=== PATIENT | male | born 1965 | race Caucasian/White ===

== ENCOUNTER 2023-10-08 17:39 | Inpatient (IN) ==
--- NOTE | 2023-10-08 18:45 | EKG ---
Test Reason : surgery Blood Pressure : */* mmHG Vent. Rate : 63 BPM Atrial Rate : * BPM P-R Int : * ms QRS Dur : 90 ms QT Int : 480 ms P-R-T Axes : * -13 57 degrees QTc Int : 491 ms Atrial fibrillation Low voltage QRS Prolonged QT Abnormal ECG No previous ECGs available Confirmed by Alfa Covarrubias MD ([id number]) on 10/09/2023 10:17:48 AM Referred By: Confirmed By: Alfa Covarrubias MD
[2023-10-08] MEDS: NS 1,000 ML IV 1,000 ML IV SCH (19:21)
[2023-10-08 19:28] LABS: BASOPHILS % (AUTO) 0.1 % (0.2-1.0); EOSINOPHILS # (AUTO) 0.1 x10^3/uL (0.0-0.2); EOSINOPHILS % (AUTO) 0.3 % (0.9-2.9); HEMATOCRIT 29.5 % (42.0-54.0); HEMOGLOBIN 9.6 g/dL (13.5-18.0); LYMPHOCYTES # (AUTO) 0.9 X10^3/uL (1.3-2.9); LYMPHOCYTES % (AUTO) 3.7 % (21.0-51.0); MEAN CORPUSCULAR HEMOGLOBIN 26.5 pg (27.0-34.0); MEAN CORPUSCULAR HGB CONC 32.7 g/dL (33.0-35.0); MEAN PLATELET VOLUME 7.3 fL (7.4-11.0); MONOCYTES # (AUTO) 0.8 x10^3/uL (0.3-0.8); MONOCYTES % (AUTO) 3.3 % (0.0-13.0); NEUTROPHILS # (AUTO) 21.8 x10^3/uL (2.2-4.8); NEUTROPHILS % (AUTO) 92.6 % (42.0-75.0); PLATELET COUNT 467 X10^3/uL (150.0-450.0); RED BLOOD COUNT 3.64 X10^6/uL (4.7-6.0); RED CELL DISTRIBUTION WIDTH 18.4 % (11.6-16.5); WHITE BLOOD COUNT 23.6 X10^3/uL (3.6-10.0)
[2023-10-08 19:40] LABS: ALBUMIN 1.7 g/dL (3.4-5.0); CALCIUM 8.7 mg/dL (8.5-10.1); COR CA(FOR HYPOALB) 10.5 mg/dL (8.5-10.1); CREATININE 1.63 mg/dL (0.70-1.30); POTASSIUM 4.4 mmol/L (3.5-5.1); TOTAL PROTEIN 8.8 g/dL (6.4-8.2)
[2023-10-08 19:50] LABS: HEMOGLOBIN A1C 8.9 %
[2023-10-08] MEDS ORDERED: NovoLIN R (or HumuLIN R) SC PRN (20:08)
[2023-10-08 20:27] LABS: PLATELET MORPHOLOGY COMMENT NORMAL (NORMAL)
[2023-10-08 20:28] LABS: ANISOCYTOSIS SLIGHT; HYPOCHROMASIA SLIGHT
[2023-10-08] MEDS: MERREM VIAL 1 G in NS 100 ML IV 100 ML IV SCH (20:29)
[2023-10-08] MEDS: LOVENOX INJ 80 MG SYR SC SCH (20:30)
[2023-10-08] MEDS ORDERED: GLUCOPHAGE XR 24-HR PO SCH (21:00)
[2023-10-08] MEDS: VANCOMYCIN IV *PREMIX 1.5 G/300 ML BAG 1.5 G/300 ML PIGGYBACK IV SCH (21:37)
--- NOTE | 2023-10-08 22:30 | CT ---
EXAM:CTA AORTA WITH RUNOFFHISTORY:critical ischemia right foot, pt stated he has ulcers to right foot and that his big toe fell off;COMPARISON:None available.TECHNIQUE:Multiple axial images of the abdomen and pelvis were obtained from the mesenteric vasculature to the plantar surface of the feet both prior to and after the administration of IV contrast. 3D reconstructions were performed utilizing radial maximum intensity projection imaging. Dose reduction techniques including Automated Exposure Control (AEC) and adjustment of mA and kV were utilized.FINDINGS:The visualized portions of the solid organs are unremarkable in their CT appearance. Cholelithiasis. No significant mesenteric lymphadenopathy or stranding can be observed. No free fluid or free air is seen within the abdomen. No bowel wall thickening or bowel dilatation is present . The colon is unremarkable. Specifically, there is no diverticulosis noted within the sigmoid colon. The urinary bladder is grossly unremarkable. The bony structures are grossly intact.There is mild diffuse calcification of the arterial castellanos.Infrarenal abdominal aorta: PatentCommon iliac arteries: PatentExternal iliac arteries: PatentCommon femoral arteries: PatentSuperficial femoral arteries: PatentPopliteal arteries: PatentTibial vasculature: Distal tibial vasculature diminished at the right ankle relative to the left. Three-vessel runoff at the level of the left ankle with two-vessel runoff at the level of the right ankle.IMPRESSION:Mild diffuse calcification of the arterial castellanos without severe stenosis or occlusion.Distal tibial vasculature is diminished at the right ankle relative to the left.Cholelithiasis.THIS IS AN ELECTRONICALLY VERIFIED FINAL REPORT10/08/2023 10:27 PM - Electronically signed by Buzz Villa MD
[2023-10-08] MEDS: OMNIPAQUE 350 mg/mL 100 mL BTL 100 ML ONE (22:38)
[2023-10-08] MEDS: OMNIPAQUE 350 mg/mL 50 mL BTL 50 ML ONE (22:38)
[2023-10-08] MEDS: NS 100 ML IV 0 ML ONE (22:39)
[2023-10-09 05:33] LABS: BASOPHILS # (AUTO) 0.1 X10^3/uL (0.0-0.1); BASOPHILS % (AUTO) 0.5 % (0.2-1.0); EOSINOPHILS # (AUTO) 0.2 x10^3/uL (0.0-0.2); EOSINOPHILS % (AUTO) 1.3 % (0.9-2.9); HEMATOCRIT 26.9 % (42.0-54.0); HEMOGLOBIN 8.8 g/dL (13.5-18.0); LYMPHOCYTES # (AUTO) 1.4 X10^3/uL (1.3-2.9); LYMPHOCYTES % (AUTO) 7.8 % (21.0-51.0); MEAN CORPUSCULAR HEMOGLOBIN 26.4 pg (27.0-34.0); MEAN CORPUSCULAR HGB CONC 32.6 g/dL (33.0-35.0); MEAN CORPUSCULAR VOLUME 80.9 fL (80.0-100.0); MEAN PLATELET VOLUME 7.6 fL (7.4-11.0); MONOCYTES % (AUTO) 5.4 % (0.0-13.0); NEUTROPHILS # (AUTO) 15.7 x10^3/uL (2.2-4.8); PLATELET COUNT 393 X10^3/uL (150.0-450.0); RED BLOOD COUNT 3.32 X10^6/uL (4.7-6.0); RED CELL DISTRIBUTION WIDTH 18.6 % (11.6-16.5); WHITE BLOOD COUNT 18.4 X10^3/uL (3.6-10.0)
[2023-10-09 05:56] LABS: ALANINE AMINOTRANSFERASE 23 Units/L (12-78); ALBUMIN 1.4 g/dL (3.4-5.0); ALKALINE PHOSPHATASE 149 Units/L (46-116); ASPARTATE AMINO TRANSFERASE 22 Units/L (15-37); BLOOD UREA NITROGEN 30 mg/dL (7-18); CALCIUM 8.3 mg/dL (8.5-10.1); CHLORIDE 96 mmol/L (98-107); COR CA(FOR HYPOALB) 10.4 mg/dL (8.5-10.1); CREATININE 1.52 mg/dL (0.70-1.30); GLUCOSE 104 mg/dL (65-99); POTASSIUM 4.5 mmol/L (3.5-5.1); SODIUM 129 mmol/L (136-145); TOTAL PROTEIN 7.4 g/dL (6.4-8.2); eGFR NON BLACK RACES 50 (>60)
--- NOTE | 2023-10-09 07:25 | RAD ---
EXAMINATION: CHEST, 1 VIEW HISTORY: surgery; . COMPARISON STUDY: None. TECHNIQUE: A single view of the chest was obtained. FINDINGS: Poor inspiration. Heart size is enlarged. No acute infiltrates. There is no pneumothorax. Hilar a nd mediastinal structures and bony structures are unremarkable. EKG leads overlie the film. Slightly lordotic film.. IMPRESSION: No acute process in the chest. THIS IS AN ELECTRONICALLY VERIFIED FINAL REPORT 10/09/2023 7:22 AM - Electronically signed by Bill Wang MD
--- NOTE | 2023-10-09 07:28 | RAD ---
EXAM: Right foot two views HISTORY: Soft tissue gas COMPARISON: None FINDINGS: There is diffuse soft tissue swelling throughout the forefoot with soft tissue gas suggestive of ga s gangrene. Patient appears to be status post amputation of the 1st ray at the level of the interpha langeal joint. There is abnormal periosteal reaction along the distal aspect of 2nd metatarsal shaft . There is disruption of the 2nd PIP joint and 3rd PIP joint. There is destructive change in the di stal 3rd metatarsal. Tarsal bones are intact and normally aligned. Lisfranc joint is intact. IMPRESSION: Soft tissue swelling and soft tissue gas suggestive of gas gangrene Findings suggestive of acute osteomyelitis involving the 2nd PIP joint, distal 2nd metatarsal and 3rd metatarsal THIS IS AN ELECTRONICALLY VERIFIED FINAL REPORT 10/09/2023 7:25 AM - Electronically signed by Ismael Mckee MD
--- NOTE | 2023-10-09 07:29 | RAD ---
EXAM: Right tibia and fibula two views HISTORY: Soft tissue gas COMPARISON: None FINDINGS: There is no evidence for fracture, lytic, or blastic lesion. No abnormal periosteal reaction or so ft tissue abnormality identified. IMPRESSION: No significant abnormality identified THIS IS AN ELECTRONICALLY VERIFIED FINAL REPORT 10/09/2023 7:26 AM - Electronically signed by Ismael Mckee MD
--- NOTE | 2023-10-09 07:42 | NOTE.SOAP ---
Soap Note Note for Day of Date of Exam: 10/09/23 Subjective Data Subjective Data: 58 year old male with severe infection to his right foot that he noticed over the weekend, never prior was sent to the hospital by Dr. Daniels. Patient is feeling fine otherwise but infection is quite significant. He has never seen a textile dyer before for diabetic foot care. Denies any constitutional symptoms Objective Data Objective Data: Ecchymosis noted along the 5th toe of the right foot and a full thickness necrotic wound on the instep of the right foot. Significantly malodorous. Erythema and edema diffusely along the right lower extremity. Unable to palpate pulses Assessment Assessment: Gas gangrene, right foot Plan Plan: Pateint was seen and evaluated bedside this am. Diagnosis and treatment were discussed with [facility] patient in detail. I explained that this is a limb threatening infection and he must get surgery this morning. He understands and wishes to proceed. XR and CTA were reviewed. Labs reviewed; patient on IV abx. Plan to take patient for a guillatine amputation with implantation of antibiotic cement and a wound vac. Patient is NPO since midnight
[2023-10-09] MEDS: FARXIGA PO SCH (08:36)
[2023-10-09] MEDS: PriLOSEC PO SCH (08:36)
[2023-10-09] MEDS: CHLORTHALIDONE PO SCH (08:37)
[2023-10-09] MEDS: ZESTRIL TAB 40 MG PO SCH (08:37)
[2023-10-09] MEDS: PHARMACY CONSULT - VANCOMYCIN XX SCH (08:38)
[2023-10-09] MEDS: VANCOMYCIN IV *PREMIX 1 G/200 ML BAG 1 G/200 ML PIGGYBACK IV ONE (08:38)
[2023-10-09] MEDS: VERSED ONE (10:30)
[2023-10-09] MEDS: BETADINE SOLN ONE ×3 (10:30→14:00)
[2023-10-09] MEDS: NS 1,000 ML IV 1,000 ML ONE (10:30)
[2023-10-09] MEDS: DIPRIVAN VIAL 20 ML ONE (10:30)
[2023-10-09] MEDS: MARCAINE 0.25% INJ ONE (10:30)
[2023-10-09] MEDS: FENTANYL VIAL INJ 100 mcg ONE (10:30)
[2023-10-09] MEDS: PERCOCET TAB 5/325 MG PO PRN (12:05)
--- NOTE | 2023-10-09 12:19 | MRI ---
EXAM:EXT LOWER JOINT W/O CONHISTORY:LEFT FOOT/ OSTEOMYELITIS;COMPARISON:None available.TECHNIQUE:Multiplanar and multisequential MR imaging of the left foot was performed without the administration of intravenous gadolinium.FINDINGS:No acute fracture, dislocation, or bone marrow edema. There is excessive motion artifact.Osteoarthritic changes along the 1st MTP joint, interphalangeal joint of the great toe and DIP joints of the toes. And osseous alignment is normal.The Lisfranc ligament is intact.The extensor and flexor tendons are normal without evidence of tendinopathy.The visualized plantar fascia is normal.Soft tissue edema which may represent cellulitis along the lateral soft tissues. No organized collection to suggest abscess. There is a possible ganglion along the dorsal soft tissues between the 4th and 5th metatarsal measuring 0.8 x 0.8 cm.IMPRESSION:Cellulitis. No MRI evidence for bone marrow edema or organized abscess.Study markedly limited by motion artifact.THIS IS AN ELECTRONICALLY VERIFIED FINAL REPORT10/09/2023 12:16 PM - Electronically signed by Bill Wang MD
[2023-10-09] MEDS: BETADINE SOLN TOP ONE (14:14)
[2023-10-09] MEDS: RECOTHROM TOP ONE (14:14)
[2023-10-09 14:37] LABS: HEMATOCRIT 26.8 % (42.0-54.0); HEMOGLOBIN 8.6 g/dL (13.5-18.0)
--- NOTE | 2023-10-09 15:49 | MD.NOTE ---
Provider Note Note Note: Saw patient bedside. bleeding controlled with pressure dressing. Discussed with patient and with Dr. Ramírez. Leg is not salvageable due to extent of infection. Did midfoot disarticulation and will need BKA or more proximal amputation due necrosis and gas gangrene. he will need further debridement of t he left foot due to supected hallux osteo and 2nd digit osteo. will try to coordinate for next week for this.
[2023-10-09] MEDS ORDERED: DEFINITY ONE (17:40)
[2023-10-09] MEDS: DILAUDID INJ IVP PRN (18:50)
[2023-10-09] MEDS: MERREM VIAL 1,000 MG in NS 100 ML IV 100 ML IV SCH (22:37)
--- NOTE | 2023-10-10 00:59 | DR.CONSULT ---
CONSULT Consultation for Day of: Date: 10/09/23 Chief Complaint Chief Complaint: Infection of right foot Allergies Allergies Allergy/AdvReac Type Severity Reaction Status Date / Time Penicillins Allergy Mild RASH Verified 10/09/23 13:34 History of Present Illness History of Present Illness: 58 yo malw with poory controlled diabetes with recent infection of right foot with auto amputation of right great toe an presented to his PCP with infection / necrosis of plantar instep of the right foot . There is also ecchymosis of the right 3rd toe. Large wound to lateral right calf into the subcutaneous tissue . Past Medical History Past Medical History: Diabetes, Dyslipidemia, GERD and Hypertension Past Surgical History Surgical History: No History Family History Family Medical History: Diabetes Mellitus, SD and Hypertension Social History Does patient currently use any type of tobacco product: Yes Type of Tobacco Use: Smokeless How many years tobacco product used: 45 Alcohol Use: None Drug Use: Prescription Drugs Medications Home Medications: Penicillins Allergy (Mild, Verified 10/09/23 13:34) RASH Atorvastin 10 milligrams at bedtime chlorthalidone 25 milligrams daily Jardiance 25 mg daiy Victoza lisinopril 40 mg daily metformin 750mg BID omeprazole 20 mg BID Review of Systems Constitutional: See HPI Eyes: No Symptoms Reported ENT: No Symptoms Reported Respiratory: No Symptoms Reported Cardiovascular: No Symptoms Reported Gastrointestinal: No Symptoms Reported Genitourinary: No Symptoms Reported Musculoskeletal: No Symptoms Reported Skin: See HPI Neurological: No Symptoms Reported Physical Exam Vital Signs: Vital Signs Temperature 98.7 F Pulse Rate 59 Pulse Rate 60 Pulse Rate 64 Pulse Rate 60 Pulse Rate 59 Pulse Rate 61 Pulse Rate 63 Pulse Rate 65 Pulse Rate 66 Pulse Rate 71 Pulse Rate 63 Pulse Rate 66 Pulse Rate 60 Pulse Rate 64 Pulse Rate 67 Pulse Rate 78 Pulse Rate 67 Pulse Rate 72 Pulse Rate 61 Pulse Rate 59 Pulse Rate 59 Pulse Rate 62 Pulse Rate 71 Pulse Rate 89 Pulse Rate 43 Pulse Rate 43 Pulse Rate 44 Respiratory Rate 20 Respiratory Rate 20 Respiratory Rate 20 Respiratory Rate 20 Respiratory Rate 25 Respiratory Rate 20 Respiratory Rate 17 Blood Pressure 127/58 Blood Pressure 120/56 Blood Pressure 118/60 Blood Pressure 114/58 Blood Pressure 119/68 Blood Pressure 130/60 Blood Pressure 131/68 Blood Pressure 139/74 Blood Pressure 132/61 Blood Pressure 132/57 Blood Pressure 132/57 Blood Pressure 119/58 Blood Pressure 127/59 Blood Pressure 121/59 Blood Pressure 121/59 Blood Pressure 114/55 Blood Pressure 114/55 Blood Pressure 114/55 Blood Pressure 111/54 Blood Pressure 108/53 Blood Pressure 112/56 Blood Pressure 104/51 Blood Pressure 102/53 Blood Pressure 90/40 Blood Pressure 97/52 Blood Pressure 108/52 Blood Pressure 124/62 Blood Pressure 124/62 Blood Pressure 148/65 Blood Pressure 144/64 Blood Pressure 102/47 Blood Pressure 111/53 O2 Sat by Pulse Oximetry 98 O2 Sat by Pulse Oximetry 99 O2 Sat by Pulse Oximetry 98 O2 Sat by Pulse Oximetry 98 O2 Sat by Pulse Oximetry 98 O2 Sat by Pulse Oximetry 98 O2 Sat by Pulse Oximetry 98 O2 Sat by Pulse Oximetry 87 O2 Sat by Pulse Oximetry 97 O2 Sat by Pulse Oximetry 97 O2 Sat by Pulse Oximetry 100 O2 Sat by Pulse Oximetry 97 O2 Sat by Pulse Oximetry 97 O2 Sat by Pulse Oximetry 98 O2 Sat by Pulse Oximetry 95 O2 Sat by Pulse Oximetry 98 O2 Sat by Pulse Oximetry 98 O2 Sat by Pulse Oximetry 97 O2 Sat by Pulse Oximetry 97 O2 Sat by Pulse Oximetry 97 O2 Sat by Pulse Oximetry 93 O2 Sat by Pulse Oximetry 94 O2 Sat by Pulse Oximetry 98 O2 Sat by Pulse Oximetry 92 O2 Sat by Pulse Oximetry 100 O2 Sat by Pulse Oximetry 100 O2 Sat by Pulse Oximetry 100 O2 Sat by Pulse Oximetry 100 Oriented: Normal, Time, Person and Place Eyes: Normal Ear: Normal Nose: Normal Throat: Normal Respiratory: Clear Throughout Cardiovascular: Other (has had some tachycardia , both feet warm, HAD CTA showing all major vessels patent. ) : Normal Auscultation: Bowel Sounds: Normal Palpation: Normal Tenderness: Normal Skin: Other ( Both legs with stigmata of severe b/l LE venous insufficiency with swelling and hemosiderin deposition. ) Musculoskeletal: Normal Psychiatric: Normal Mood Description: Anxious Affect: Normal Speech Pattern: Clear and Appropriate Plan (1) Diabetic foot infection: Status: Acute Plan: Patient had forefoot amputation with drainage of abscess over the plantar aspect of the right foot. There is gross contamination. patient may require right below knee amputation. Arterial flow seems to be normal both legs . (2) Hypertension: Status: Acute Plan: home medicatiosn (3) GERD (gastroesophageal reflux disease): Status: Acute Plan: home medications (4) Hyperlipidemia: Status: Acute Plan: home medications (5) Type 2 diabetes mellitus without complications: Status: Acute
[2023-10-10 05:26] LABS: EOSINOPHILS # (AUTO) 0.2 x10^3/uL (0.0-0.2); MEAN CORPUSCULAR HEMOGLOBIN 26.4 pg (27.0-34.0); MEAN PLATELET VOLUME 7.4 fL (7.4-11.0); PLATELET COUNT 414 X10^3/uL (150.0-450.0)
[2023-10-10 05:35] LABS: BASOPHILS # (AUTO) 0.1 X10^3/uL (0.0-0.1); BASOPHILS % (AUTO) 0.5 % (0.2-1.0); EOSINOPHILS % (AUTO) 1.5 % (0.9-2.9); LYMPHOCYTES # (AUTO) 1.3 X10^3/uL (1.3-2.9); LYMPHOCYTES % (AUTO) 7.5 % (21.0-51.0); MEAN CORPUSCULAR HGB CONC 32.2 g/dL (33.0-35.0); MEAN CORPUSCULAR VOLUME 81.8 fL (80.0-100.0); MONOCYTES # (AUTO) 0.9 x10^3/uL (0.3-0.8); MONOCYTES % (AUTO) 5.4 % (0.0-13.0); NEUTROPHILS # (AUTO) 14.2 x10^3/uL (2.2-4.8); NEUTROPHILS % (AUTO) 85.1 % (42.0-75.0); RED BLOOD COUNT 3.05 X10^6/uL (4.7-6.0); RED CELL DISTRIBUTION WIDTH 18.5 % (11.6-16.5); WHITE BLOOD COUNT 16.7 X10^3/uL (3.6-10.0)
[2023-10-10 05:37] LABS: ALANINE AMINOTRANSFERASE 27 Units/L (12-78); ALBUMIN 1.4 g/dL (3.4-5.0); ALKALINE PHOSPHATASE 167 Units/L (46-116); ASPARTATE AMINO TRANSFERASE 27 Units/L (15-37); BLOOD UREA NITROGEN 26 mg/dL (7-18); CARBON DIOXIDE 19.7 mmol/L (21-32); CHLORIDE 99 mmol/L (98-107); COR CA(FOR HYPOALB) 10.1 mg/dL (8.5-10.1); COR NA(FOR HYPERGLY) 132 mmol/L (136-145); CREATININE 1.43 mg/dL (0.70-1.30); GLUCOSE 149 mg/dL (65-99); POTASSIUM 4.5 mmol/L (3.5-5.1); SODIUM 131 mmol/L (136-145); TOTAL PROTEIN 7.2 g/dL (6.4-8.2); eGFR NON BLACK RACES 54 (>60)
[2023-10-10] MEDS: PHARMACY COMMENT IV SCH (08:11)
--- NOTE | 2023-10-10 08:38 | NOTE.SOAP ---
Soap Note Note for Day of Date of Exam: 10/10/23 Subjective Data Subjective Data: Patient POD1 s/p guillatine amputation of the right foot. Patient resting comfortable this am; pain is better controlled today compared to yesterday. Objective Data Objective Data: Dressings are c/d/i without strikethrough this am Full thickness wound on the medial side of the left hallux and dorsal aspect of the left 2nd toe with hyperkeratotic tissue overlying. Full thickness venous ulcer on the posterior right calf with a fibrogranular wound bed that measures approximately 8x5x0.2cm Palpable pulses. Gross epicritic and protective sensation diminished Assessment Assessment: S/P R Guillatine Chopart Amputation, Right foot -Gas Gangrene, right foot -Full thickness nonhealing diabetic ulcers, Left foot -DM w/ neuropathy -Venous insufficiency Plan Plan: Patient was seen today and on multiple occasions post operatively yesterday. Bleeding is well controlled and labs reviewed. He had a tight dressing on to hold hemostasis. Lovenox on hold. Explained to patient that his infection was too extensive for limb salvage, we did everything we could but limited with soft tissue. Dr. Ramírez will do a BKA early next week. MRI reviewed of the left foot; no osteomyelitis but patient will need to be followed by Dr. Hurst to make sure wounds do not progress to further infection. Will follow .
[2023-10-10 09:30] LABS: CREATININE 1.47 mg/dL (0.70-1.30); VANCOMYCIN,TROUGH 19.3 ug/mL (15-20)
--- NOTE | 2023-10-10 15:47 | DR.PROGNOT ---
HOSPITAL PROGRESS NOTE Progress Note for Day of: Progress Note Date: 10/10/23 Chief Complaint Chief Complaint: foot pain History of Present Illness History of Present Illness: Patient seen in the ICU with nurse at bedside. Admi tted from PCPs office and underwent forefoot amputation yesterday with podiatry. Vascular has been consulted and planning on doing BKA next week. Echo showed EF 50% yesterday but had some poor images on study. Patient denies any complaints today feels like he is doing well overall. Nurses 9 interim events over the weekend. He is still on his IV antibiotics. Past Medical Family Social History Allergies: Allergies Penicillins Allergy (Mild, Verified 10/09/23 13:34) RASH Vital Signs Vital Signs: Vital Signs Temperature 98.4 F Temperature 98.2 F Pulse Rate 53 Pulse Rate 56 Pulse Rate 59 Pulse Rate 55 Pulse Rate 62 Pulse Rate 65 Pulse Rate 54 Pulse Rate 50 Pulse Rate 53 Pulse Rate 52 Pulse Rate 52 Pulse Rate 62 Pulse Rate 60 Pulse Rate 79 Pulse Rate 62 Pulse Rate 73 Respiratory Rate 20 Respiratory Rate 20 Respiratory Rate 22 Respiratory Rate 20 Respiratory Rate 22 Respiratory Rate 18 Respiratory Rate 18 Respiratory Rate 18 Blood Pressure 118/55 Blood Pressure 118/60 Blood Pressure 118/60 Blood Pressure 107/82 Blood Pressure 109/67 Blood Pressure 120/55 Blood Pressure 133/60 Blood Pressure 141/64 Blood Pressure 132/58 O2 Sat by Pulse Oximetry 100 O2 Sat by Pulse Oximetry 99 O2 Sat by Pulse Oximetry 99 O2 Sat by Pulse Oximetry 98 O2 Sat by Pulse Oximetry 98 O2 Sat by Pulse Oximetry 99 O2 Sat by Pulse Oximetry 98 O2 Sat by Pulse Oximetry 98 O2 Sat by Pulse Oximetry 98 O2 Sat by Pulse Oximetry 97 O2 Sat by Pulse Oximetry 97 O2 Sat by Pulse Oximetry 98 O2 Sat by Pulse Oximetry 98 O2 Sat by Pulse Oximetry 94 O2 Sat by Pulse Oximetry 99 O2 Sat by Pulse Oximetry 98 Physical Exam Oriented: Normal, Time, Person and Place Eyes: Normal Ear: Normal Nose: Normal Throat: Normal Cardiovascular: Other (has had some tachycardia , both feet warm, HAD CTA showing all major vessels patent. ) : Normal GI:Auscultation: Normal GI:Palpation: Normal GI: Tenderness: Normal Skin: Other ( Both legs with stigmata of severe b/l LE venous insufficiency with swelling and hemosiderin deposition. ) Musculoskeletal: Normal Psychiatric: Normal Mood Description: Calm Affect: Normal Speech Pattern: Clear and Appropriate Laboratory and Diagnostics 10/10/23 04:27 10/10/23 08:36 Labs: 10/08/23 19:05 Blood Blood Culture - Preliminary 10/08/23 20:43 Foot - Right Wound Gram Stain - Final 10/08/23 20:43 Foot - Right Wound Culture - Preliminary Providencia Rettgeri 10/08/23 18:55 Blood Blood Culture Gram Stain - Final 10/08/23 18:55 Blood Blood Culture - Preliminary 10/09/23 09:30 Foot - Right Wound Gram Stain - Final 10/09/23 09:30 Foot - Right Wound Culture - Preliminary Laboratory WBC 16.7 X10^3/uL (3.6-10.0) H 10/10/23 04:27 RBC 3.05 X10^6/uL (4.7-6.0) L 10/10/23 04:27 Hgb 8.0 g/dL (13.5-18.0) L 10/10/23 04:27 Hct 25.0 % (42.0-54.0) L 10/10/23 04:27 MCV 81.8 fL (80.0-100.0) 10/10/23 04:27 MCH 26.4 pg (27.0-34.0) L 10/10/23 04:27 MCHC 32.2 g/dL (33.0-35.0) L 10/10/23 04:27 RDW 18.5 % (11.6-16.5) H 10/10/23 04:27 Plt Count 414 X10^3/uL (150.0-450.0) 10/10/23 04:27 Plt Count Comment Increased (ADEQUATE) 10/08/23 18:55 MPV 7.4 fL (7.4-11.0) 10/10/23 04:27 Neut % (Auto) 85.1 % (42.0-75.0) H 10/10/23 04:27 Lymph % (Auto) 7.5 % (21.0-51.0) L 10/10/23 04:27 Fajardo % (Auto) 5.4 % (0.0-13.0) 10/10/23 04:27 Eos % (Auto) 1.5 % (0.9-2.9) 10/10/23 04:27 Baso % (Auto) 0.5 % (0.2-1.0) 10/10/23 04:27 Neut # (Auto) 14.2 x10^3/uL (2.2-4.8) H 10/10/23 04:27 Lymph # (Auto) 1.3 X10^3/uL (1.3-2.9) 10/10/23 04:27 Fajardo # (Auto) 0.9 x10^3/uL (0.3-0.8) H 10/10/23 04:27 Eos # (Auto) 0.2 x10^3/uL (0.0-0.2) 10/10/23 04:27 Baso # (Auto) 0.1 X10^3/uL (0.0-0.1) 10/10/23 04:27 Absolute Nucleated RBC 0.1 /100WBC 10/10/23 04:27 Total Counted 100 10/08/23 18:55 Neutrophils % (Manual) 94 % (39-76) H 10/08/23 18:55 Lymphocytes % (Manual) 3 % (13-43) L 10/08/23 18:55 Monocytes % (Manual) 3 % (4-9) L 10/08/23 18:55 Plt Morphology Comment Normal (NORMAL) 10/08/23 18:55 RBC Morphology Abnormal (NORMAL) 10/08/23 18:55 Hypochromasia Slight A 10/08/23 18:55 Anisocytosis Slight A 10/08/23 18:55 Sodium 131 mmol/L (136-145) L 10/10/23 04:27 Corrected Sodium 132 mmol/L (136-145) L 10/10/23 04:27 Potassium 4.5 mmol/L (3.5-5.1) 10/10/23 04:27 Chloride 99 mmol/L (98-107) 10/10/23 04:27 Carbon Dioxide 19.7 mmol/L (21-32) L 10/10/23 04:27 BUN 26 mg/dL (7-18) H 10/10/23 04:27 Creatinine 1.47 mg/dL (0.70-1.30) H 10/10/23 08:36 Est GFR (MDRD) Af Amer > 60 (>60) 10/10/23 04:27 Est GFR (MDRD) Non-Af 54 (>60) L 10/10/23 04:27 Glucose 149 mg/dL (65-99) H 10/10/23 04:27 POC Glucose (mg/dL) 146 mg/dL (65-99) H 10/10/23 11:24 Hemoglobin A1c 8.9 % 10/08/23 18:55 Calcium 8.0 mg/dL (8.5-10.1) L 10/10/23 04:27 Corrected Calcium 10.1 mg/dL (8.5-10.1) 10/10/23 04:27 Total Bilirubin 0.60 mg/dL (0.2-1.0) 10/10/23 04:27 AST 27 Units/L (15-37) 10/10/23 04:27 ALT 27 Units/L (12-78) 10/10/23 04:27 Alkaline Phosphatase 167 Units/L (46-116) H 10/10/23 04:27 Total Protein 7.2 g/dL (6.4-8.2) 10/10/23 04:27 Albumin 1.4 g/dL (3.4-5.0) L 10/10/23 04:27 Globulin 5.8 g/dL (2.5-4.5) H 10/10/23 04:27 Albumin/Globulin Ratio 0.2 Ratio (1.1-2.1) L 10/10/23 04:27 Vancomycin Trough 19.3 ug/mL (15-20) 10/10/23 08:36 Blood Type O POSITIVE 10/09/23 10:20 Antibody Screen Negative 10/09/23 10:20 Assessment and Plan 1: Gas gangrene of right foot. Continue IV antibiotics. Continue per podiatry and vascular. 2: Diabetic foot ulcer of the left foot. Continue per podiatry and vascular surgery. 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 Serum creatinine around 1.4 to 1.5 x 2 days. Slightly improved from admission. Continue IV hydration. Continue to monitor sugars closely. 4: Anemia of chronic disease. Hemoglobin is downtrending this is likely a complication of dilution from IV fluids and recent surgery. Continue to monitor. Transfuse for hemodynamic instability or hemoglobin less than 7. May transfuse if requested by surgery as well. 5: Essential Hypertension. Continue to monitor. 6: Morbid obesity. Diabetic diet. Exercise with physical therapy once released by podiatry and surgery.
[2023-10-10] MEDS: GLUCOPHAGE XR 24-HR PO SCH (20:59)
--- NOTE | 2023-10-10 23:35 | NOTE.SOAP ---
Soap Note Note for Day of Date of Exam: 10/10/23 Subjective Data Subjective Data: Patient doing well after guillotine amputation right forefoot Objective Data Temperature: 98.5 F Pulse Rate: 65 Respiratory Rate: 18 Blood Pressure: 121/56 O2 Sat by Pulse Oximetry: 97 Objective Data: dressing intact both legs Assessment Assessment: marked infection right foot Plan Plan: Plan below knee amputation next week. Difficulty will be how to handle the full thickness wound to the right lateral calf.
[2023-10-11 05:10] LABS: BASOPHILS # (AUTO) 0.1 X10^3/uL (0.0-0.1); BASOPHILS % (AUTO) 0.8 % (0.2-1.0); EOSINOPHILS # (AUTO) 0.3 x10^3/uL (0.0-0.2); EOSINOPHILS % (AUTO) 2.1 % (0.9-2.9); HEMATOCRIT 25.6 % (42.0-54.0); HEMOGLOBIN 8.2 g/dL (13.5-18.0); LYMPHOCYTES # (AUTO) 1.4 X10^3/uL (1.3-2.9); LYMPHOCYTES % (AUTO) 10.2 % (21.0-51.0); MEAN CORPUSCULAR HEMOGLOBIN 26.5 pg (27.0-34.0); MEAN CORPUSCULAR HGB CONC 32.2 g/dL (33.0-35.0); MEAN CORPUSCULAR VOLUME 82.3 fL (80.0-100.0); MEAN PLATELET VOLUME 7.2 fL (7.4-11.0); MONOCYTES # (AUTO) 0.9 x10^3/uL (0.3-0.8); MONOCYTES % (AUTO) 6.8 % (0.0-13.0); NEUTROPHILS # (AUTO) 11.1 x10^3/uL (2.2-4.8); NEUTROPHILS % (AUTO) 80.1 % (42.0-75.0); PLATELET COUNT 445 X10^3/uL (150.0-450.0); RED BLOOD COUNT 3.11 X10^6/uL (4.7-6.0); RED CELL DISTRIBUTION WIDTH 18.3 % (11.6-16.5); WHITE BLOOD COUNT 13.9 X10^3/uL (3.6-10.0)
[2023-10-11 05:22] LABS: ALANINE AMINOTRANSFERASE 33 Units/L (12-78); ALBUMIN 1.5 g/dL (3.4-5.0); ALKALINE PHOSPHATASE 153 Units/L (46-116); ASPARTATE AMINO TRANSFERASE 47 Units/L (15-37); BLOOD UREA NITROGEN 23 mg/dL (7-18); CALCIUM 8.3 mg/dL (8.5-10.1); CARBON DIOXIDE 18.6 mmol/L (21-32); CHLORIDE 102 mmol/L (98-107); COR CA(FOR HYPOALB) 10.3 mg/dL (8.5-10.1); COR NA(FOR HYPERGLY) 135 mmol/L (136-145); CREATININE 1.24 mg/dL (0.70-1.30); GLUCOSE 127 mg/dL (65-99); POTASSIUM 4.4 mmol/L (3.5-5.1); SODIUM 134 mmol/L (136-145); TOTAL PROTEIN 7.5 g/dL (6.4-8.2); eGFR NON BLACK RACES > 60 (>60)
[2023-10-11 05:43] LABS: ANISOCYTOSIS SLIGHT; HYPOCHROMASIA SLIGHT; PLATELET MORPHOLOGY COMMENT NORMAL (NORMAL)
--- NOTE | 2023-10-11 13:57 | DR.PROGNOT ---
HOSPITAL PROGRESS NOTE Progress Note for Day of: Progress Note Date: 10/11/23 Chief Complaint Chief Complaint: foot pain History of Present Illness History of Present Illness: Pt did well overnight. Had questions about home vs h ospital DM meds. Vascular planning BKA next week. Lovenox restarted last night and foot wound had to be reinforced multiple times. Past Medical Family Social History Allergies: Allergies Penicillins Allergy (Mild, Verified 10/09/23 13:34) RASH Vital Signs Vital Signs: Vital Signs Temperature 98.5 F Temperature 98.4 F Pulse Rate 56 Pulse Rate 54 Pulse Rate 50 Pulse Rate 50 Pulse Rate 50 Pulse Rate 54 Pulse Rate 54 Pulse Rate 54 Pulse Rate 75 Pulse Rate 62 Pulse Rate 62 Pulse Rate 54 Pulse Rate 54 Pulse Rate 53 Pulse Rate 53 Pulse Rate 53 Pulse Rate 48 Pulse Rate 50 Respiratory Rate 20 Respiratory Rate 22 Respiratory Rate 20 Respiratory Rate 20 Blood Pressure 114/53 Blood Pressure 113/51 Blood Pressure 113/55 Blood Pressure 121/62 Blood Pressure 123/60 Blood Pressure 123/60 Blood Pressure 122/56 Blood Pressure 125/59 O2 Sat by Pulse Oximetry 98 O2 Sat by Pulse Oximetry 98 O2 Sat by Pulse Oximetry 98 O2 Sat by Pulse Oximetry 98 O2 Sat by Pulse Oximetry 98 O2 Sat by Pulse Oximetry 97 O2 Sat by Pulse Oximetry 99 O2 Sat by Pulse Oximetry 98 O2 Sat by Pulse Oximetry 100 O2 Sat by Pulse Oximetry 100 O2 Sat by Pulse Oximetry 98 O2 Sat by Pulse Oximetry 98 O2 Sat by Pulse Oximetry 98 O2 Sat by Pulse Oximetry 97 O2 Sat by Pulse Oximetry 97 O2 Sat by Pulse Oximetry 95 O2 Sat by Pulse Oximetry 98 Physical Exam Oriented: Normal, Time, Person and Place Eyes: Normal Ear: Normal Nose: Normal Throat: Normal Cardiovascular: Other (has had some tachycardia , both feet warm, HAD CTA showing all major vessels patent. ) : Normal GI:Auscultation: Normal GI:Palpation: Normal GI: Tenderness: Normal Skin: Other ( Both legs with stigmata of severe b/l LE venous insufficiency with swelling and hemosiderin deposition. ) Musculoskeletal: Normal Psychiatric: Normal Mood Description: Calm Affect: Normal Speech Pattern: Clear and Appropriate Laboratory and Diagnostics 10/11/23 04:16 10/11/23 04:16 Labs: 10/08/23 20:43 Foot - Right Wound Gram Stain - Final 10/08/23 20:43 Foot - Right Wound Culture - Final Providencia Rettgeri Staphylococcus Aureus 10/09/23 09:30 Foot - Right Wound Gram Stain - Final 10/09/23 09:30 Foot - Right Wound Culture - Preliminary 10/08/23 18:55 Blood Blood Culture Gram Stain - Final 10/08/23 18:55 Blood Blood Culture - Preliminary 10/08/23 19:05 Blood Blood Culture - Preliminary Laboratory WBC 13.9 X10^3/uL (3.6-10.0) H 10/11/23 04:16 RBC 3.11 X10^6/uL (4.7-6.0) L 10/11/23 04:16 Hgb 8.2 g/dL (13.5-18.0) L 10/11/23 04:16 Hct 25.6 % (42.0-54.0) L 10/11/23 04:16 MCV 82.3 fL (80.0-100.0) 10/11/23 04:16 MCH 26.5 pg (27.0-34.0) L 10/11/23 04:16 MCHC 32.2 g/dL (33.0-35.0) L 10/11/23 04:16 RDW 18.3 % (11.6-16.5) H 10/11/23 04:16 Plt Count 445 X10^3/uL (150.0-450.0) 10/11/23 04:16 Plt Count Comment Adequate (ADEQUATE) 10/11/23 04:16 MPV 7.2 fL (7.4-11.0) L 10/11/23 04:16 Neut % (Auto) 80.1 % (42.0-75.0) H 10/11/23 04:16 Lymph % (Auto) 10.2 % (21.0-51.0) L 10/11/23 04:16 Meagher % (Auto) 6.8 % (0.0-13.0) 10/11/23 04:16 Eos % (Auto) 2.1 % (0.9-2.9) 10/11/23 04:16 Baso % (Auto) 0.8 % (0.2-1.0) 10/11/23 04:16 Neut # (Auto) 11.1 x10^3/uL (2.2-4.8) H 10/11/23 04:16 Lymph # (Auto) 1.4 X10^3/uL (1.3-2.9) 10/11/23 04:16 Meagher # (Auto) 0.9 x10^3/uL (0.3-0.8) H 10/11/23 04:16 Eos # (Auto) 0.3 x10^3/uL (0.0-0.2) H 10/11/23 04:16 Baso # (Auto) 0.1 X10^3/uL (0.0-0.1) 10/11/23 04:16 Absolute Nucleated RBC 0.0 /100WBC 10/11/23 04:16 Total Counted 100 10/11/23 04:16 Neutrophils % (Manual) 77 % (39-76) H 10/11/23 04:16 Lymphocytes % (Manual) 14 % (13-43) 10/11/23 04:16 Monocytes % (Manual) 6 % (4-9) 10/11/23 04:16 Eosinophils % (Manual) 3 % (0-6) 10/11/23 04:16 Plt Morphology Comment Normal (NORMAL) 10/11/23 04:16 RBC Morphology Abnormal (NORMAL) 10/11/23 04:16 Hypochromasia Slight A 10/11/23 04:16 Anisocytosis Slight A 10/11/23 04:16 Sodium 134 mmol/L (136-145) L 10/11/23 04:16 Corrected Sodium 135 mmol/L (136-145) L 10/11/23 04:16 Potassium 4.4 mmol/L (3.5-5.1) 10/11/23 04:16 Chloride 102 mmol/L (98-107) 10/11/23 04:16 Carbon Dioxide 18.6 mmol/L (21-32) L 10/11/23 04:16 BUN 23 mg/dL (7-18) H 10/11/23 04:16 Creatinine 1.24 mg/dL (0.70-1.30) 10/11/23 04:16 Est GFR (MDRD) Af Amer > 60 (>60) 10/11/23 04:16 Est GFR (MDRD) Non-Af > 60 (>60) 10/11/23 04:16 Glucose 127 mg/dL (65-99) H 10/11/23 04:16 POC Glucose (mg/dL) 110 mg/dL (65-99) H 10/11/23 11:10 Hemoglobin A1c 8.9 % 10/08/23 18:55 Calcium 8.3 mg/dL (8.5-10.1) L 10/11/23 04:16 Corrected Calcium 10.3 mg/dL (8.5-10.1) H 10/11/23 04:16 Total Bilirubin 0.50 mg/dL (0.2-1.0) 10/11/23 04:16 AST 47 Units/L (15-37) H 10/11/23 04:16 ALT 33 Units/L (12-78) 10/11/23 04:16 Alkaline Phosphatase 153 Units/L (46-116) H 10/11/23 04:16 Total Protein 7.5 g/dL (6.4-8.2) 10/11/23 04:16 Albumin 1.5 g/dL (3.4-5.0) L 10/11/23 04:16 Globulin 6.0 g/dL (2.5-4.5) H 10/11/23 04:16 Albumin/Globulin Ratio 0.3 Ratio (1.1-2.1) L 10/11/23 04:16 Vancomycin Trough 19.3 ug/mL (15-20) 10/10/23 08:36 Blood Type O POSITIVE 10/09/23 10:20 Antibody Screen Negative 10/09/23 10:20 Assessment and Plan 1: Gas gangrene of right foot. Continue IV antibiotics. Continue per podiatry and vascular. 2: Diabetic foot ulcer of the left foot. Continue per podiatry and vascular matty mauri. 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 Serum creatinine around 1.4 to 1.5 x 2 days. Slightly improved from admission. Continue IV hydration. Continue to monitor sugars closely. 4: Anemia of chronic disease. Stop Lovenox for now. Continue to monitor. Transfuse for hemodynamic instability or hemoglobin less than 7. May transfuse if requested by surgery as well. 5: Essential Hypertension. Continue to monitor. 6: Morbid obesity. Diabetic diet. Exercise with physical therapy once released by podiatry and surgery.
[2023-10-11] MEDS: IMODIUM CAP 2 MG PO ONE (15:45)
--- NOTE | 2023-10-11 18:09 | NOTE.SOAP ---
Soap Note Note for Day of Date of Exam: 10/11/23 Subjective Data Subjective Data: S/P guillotine amputation right forefoot , Stable Objective Data Temperature: 98.1 F Pulse Rate: 47 Respiratory Rate: 20 Blood Pressure: 106/52 O2 Sat by Pulse Oximetry: 95 Objective Data: Open wound right foot examined , bleeding and gross infection under control. Hgb=8.2, Leaf Fat Scraper=1.24, crusting wounds left dorsal great and second toe Assessment Assessment: Gross infection right foot Plan Plan: Plan right below knee amputation later this week.
[2023-10-12 04:55] LABS: BASOPHILS # (AUTO) 0.1 X10^3/uL (0.0-0.1); BASOPHILS % (AUTO) 0.8 % (0.2-1.0); EOSINOPHILS # (AUTO) 0.3 x10^3/uL (0.0-0.2); EOSINOPHILS % (AUTO) 2.2 % (0.9-2.9); HEMOGLOBIN 8.3 g/dL (13.5-18.0); LYMPHOCYTES # (AUTO) 1.5 X10^3/uL (1.3-2.9); LYMPHOCYTES % (AUTO) 11.1 % (21.0-51.0); MEAN CORPUSCULAR HEMOGLOBIN 26.3 pg (27.0-34.0); MEAN CORPUSCULAR HGB CONC 31.8 g/dL (33.0-35.0); MEAN CORPUSCULAR VOLUME 82.7 fL (80.0-100.0); MEAN PLATELET VOLUME 6.9 fL (7.4-11.0); MONOCYTES # (AUTO) 0.8 x10^3/uL (0.3-0.8); MONOCYTES % (AUTO) 5.9 % (0.0-13.0); NEUTROPHILS # (AUTO) 11.2 x10^3/uL (2.2-4.8); PLATELET COUNT 413 X10^3/uL (150.0-450.0); RED BLOOD COUNT 3.14 X10^6/uL (4.7-6.0); RED CELL DISTRIBUTION WIDTH 18.7 % (11.6-16.5)
[2023-10-12 05:07] LABS: ALANINE AMINOTRANSFERASE 31 Units/L (12-78); ALBUMIN 1.4 g/dL (3.4-5.0); ALKALINE PHOSPHATASE 130 Units/L (46-116); ASPARTATE AMINO TRANSFERASE 41 Units/L (15-37); BLOOD UREA NITROGEN 21 mg/dL (7-18); CALCIUM 8.1 mg/dL (8.5-10.1); CARBON DIOXIDE 18.7 mmol/L (21-32); CHLORIDE 101 mmol/L (98-107); COR CA(FOR HYPOALB) 10.2 mg/dL (8.5-10.1); COR NA(FOR HYPERGLY) 133 mmol/L (136-145); GLUCOSE 111 mg/dL (65-99); POTASSIUM 4.3 mmol/L (3.5-5.1); SODIUM 133 mmol/L (136-145); TOTAL PROTEIN 7.2 g/dL (6.4-8.2); eGFR NON BLACK RACES > 60 (>60)
[2023-10-12 05:19] LABS: ANISOCYTOSIS SLIGHT; HYPOCHROMASIA SLIGHT; PLATELET MORPHOLOGY COMMENT NORMAL (NORMAL)
[2023-10-12 09:21] LABS: CREATININE 1.25 mg/dL (0.70-1.30)
[2023-10-12] MEDS: LOVENOX INJ 40 MG SYR SC SCH (10:06)
[2023-10-12] MEDS: PROCRIT or EPOGEN VIAL 10,000 UNITS SC SCH (10:06)
[2023-10-12] MEDS: ROBAXIN PO PRN (11:58)
--- NOTE | 2023-10-12 22:01 | NOTE.SOAP ---
Soap Note Note for Day of Date of Exam: 10/12/23 Subjective Data Subjective Data: Right foot s/p Guillotine amputation right foot. In addition has fulll thickness wound to the posterior right calf. Objective Data Temperature: 98.4 F Pulse Rate: 51 Respiratory Rate: 20 Blood Pressure: 130/56 O2 Sat by Pulse Oximetry: 99 Objective Data: right foot as above, skin both legs with stigmata of venous insufficiency Assessment Assessment: severe infecvtion right foot with wound to right calf Plan Plan: right below knee amputation and possible split thickness skin graft to the right calf.
[2023-10-12] MEDS: VANCOMYCIN IV *PREMIX 1 G/200 ML BAG 1 G/200 ML PIGGYBACK IV SCH (22:08)
[2023-10-12] MEDS: MERREM VIAL 1 G in NS 100 ML IV 100 ML IV SCH (22:25)
[2023-10-13] MEDS ORDERED: HIBICLENS WASH ONE (04:57)
[2023-10-13 05:07] LABS: BASOPHILS # (AUTO) 0.1 X10^3/uL (0.0-0.1); EOSINOPHILS # (AUTO) 0.2 x10^3/uL (0.0-0.2); EOSINOPHILS % (AUTO) 1.6 % (0.9-2.9); HEMATOCRIT 22.7 % (42.0-54.0); HEMOGLOBIN 7.3 g/dL (13.5-18.0); LYMPHOCYTES # (AUTO) 1.7 X10^3/uL (1.3-2.9); MEAN CORPUSCULAR HEMOGLOBIN 26.4 pg (27.0-34.0); MEAN CORPUSCULAR HGB CONC 32.1 g/dL (33.0-35.0); MEAN CORPUSCULAR VOLUME 82.2 fL (80.0-100.0); MONOCYTES % (AUTO) 7.3 % (0.0-13.0); NEUTROPHILS # (AUTO) 11.2 x10^3/uL (2.2-4.8); NEUTROPHILS % (AUTO) 78.1 % (42.0-75.0); PLATELET COUNT 405 X10^3/uL (150.0-450.0); RED BLOOD COUNT 2.77 X10^6/uL (4.7-6.0); RED CELL DISTRIBUTION WIDTH 18.8 % (11.6-16.5); WHITE BLOOD COUNT 14.3 X10^3/uL (3.6-10.0)
[2023-10-13] MEDS: HIBICLENS WASH EXT ONE (05:16)
[2023-10-13 05:17] LABS: ALANINE AMINOTRANSFERASE 25 Units/L (12-78); ALBUMIN 1.3 g/dL (3.4-5.0); ALKALINE PHOSPHATASE 105 Units/L (46-116); ASPARTATE AMINO TRANSFERASE 31 Units/L (15-37); BLOOD UREA NITROGEN 19 mg/dL (7-18); CALCIUM 8.1 mg/dL (8.5-10.1); CARBON DIOXIDE 17.9 mmol/L (21-32); CHLORIDE 103 mmol/L (98-107); COR CA(FOR HYPOALB) 10.3 mg/dL (8.5-10.1); CREATININE 1.12 mg/dL (0.70-1.30); GLUCOSE 104 mg/dL (65-99); POTASSIUM 4.1 mmol/L (3.5-5.1); SODIUM 135 mmol/L (136-145); TOTAL PROTEIN 6.8 g/dL (6.4-8.2); eGFR NON BLACK RACES > 60 (>60)
[2023-10-13] MEDS: NS 250 ML IV 250 ML IV ONE (14:50)
[2023-10-13] MEDS ORDERED: REGLAN INJ 10 MG VIAL IVP PRN (15:00)
[2023-10-13] MEDS ORDERED: ZOFRAN INJ 4 MG VIAL IVP PRN (15:00)
[2023-10-13] MEDS ORDERED: BARHEMSYS INJ IVP PRN (15:00)
[2023-10-13] MEDS ORDERED: BENADRYL INJ 50 MG VIAL IVP PRN (15:00)
[2023-10-13] MEDS ORDERED: DILAUDID INJ IVP PRN (15:00)
[2023-10-13] MEDS ORDERED: XYLOCAINE 2 % (PLAIN) ONE (15:31)
[2023-10-13] MEDS: NS 1,000 ML IV 1,000 ML ONE (15:31)
[2023-10-13] MEDS: DIPRIVAN VIAL 20 ML ONE ×2 (15:31→16:57)
[2023-10-13] MEDS: VERSED ONE (15:31)
[2023-10-13] MEDS: FENTANYL VIAL INJ 100 mcg ONE (15:31)
[2023-10-13] MEDS: PRECEDEX INJ VIAL ONE (15:31)
[2023-10-13] MEDS ORDERED: KETAMINE HCL ONE (15:31)
[2023-10-13] MEDS: ROBINUL ONE (15:49)
[2023-10-13] MEDS: BETADINE SOLN ONE (15:49)
[2023-10-13] MEDS: EPHEDRINE SULFATE INJ ONE (15:59)
[2023-10-13] MEDS: ANCEF VIAL 1 GRAM ONE (16:05)
[2023-10-13] MEDS: NS 100 ML IV 100 ML ONE (16:05)
--- NOTE | 2023-10-13 17:37 | OR.IMMED ---
IMMEDIATE POST-OP NOTE Immediate Post-Op Note Date of surgery/procedure: 10/13/23 Pre-Op Diagnosis: Severe osteomyelitis right foot, wound right calf Post-Op Diagnosis: same Procedure: right below the knee amputation, spit thickness skin graft right calf wound Description of Procedure: dictated Surgeon/Loom Blower: Desiree Findings: as above Estimated Blood Loss: 200 cc Complications: none Progress Notes: to ccu
[2023-10-13 19:13] LABS: HEMOGLOBIN 8.7 g/dL (13.5-18.0)
[2023-10-14 05:00] LABS: BASOPHILS # (AUTO) 0.2 X10^3/uL (0.0-0.1); BASOPHILS % (AUTO) 1.1 % (0.2-1.0); EOSINOPHILS # (AUTO) 0.3 x10^3/uL (0.0-0.2); EOSINOPHILS % (AUTO) 1.8 % (0.9-2.9); HEMATOCRIT 27.4 % (42.0-54.0); HEMOGLOBIN 8.8 g/dL (13.5-18.0); LYMPHOCYTES # (AUTO) 1.6 X10^3/uL (1.3-2.9); LYMPHOCYTES % (AUTO) 10.8 % (21.0-51.0); MEAN CORPUSCULAR HEMOGLOBIN 26.5 pg (27.0-34.0); MEAN CORPUSCULAR HGB CONC 32.2 g/dL (33.0-35.0); MEAN CORPUSCULAR VOLUME 82.3 fL (80.0-100.0); MONOCYTES # (AUTO) 0.7 x10^3/uL (0.3-0.8); MONOCYTES % (AUTO) 4.6 % (0.0-13.0); NEUTROPHILS # (AUTO) 12.1 x10^3/uL (2.2-4.8); NEUTROPHILS % (AUTO) 81.7 % (42.0-75.0); PLATELET COUNT 438 X10^3/uL (150.0-450.0); RED BLOOD COUNT 3.33 X10^6/uL (4.7-6.0); RED CELL DISTRIBUTION WIDTH 18.2 % (11.6-16.5); WHITE BLOOD COUNT 14.8 X10^3/uL (3.6-10.0)
[2023-10-14 05:12] LABS: ALANINE AMINOTRANSFERASE 26 Units/L (12-78); ALBUMIN 1.4 g/dL (3.4-5.0); ALKALINE PHOSPHATASE 105 Units/L (46-116); ASPARTATE AMINO TRANSFERASE 35 Units/L (15-37); BLOOD UREA NITROGEN 18 mg/dL (7-18); CALCIUM 8.1 mg/dL (8.5-10.1); CARBON DIOXIDE 18.9 mmol/L (21-32); CHLORIDE 103 mmol/L (98-107); COR CA(FOR HYPOALB) 10.2 mg/dL (8.5-10.1); COR NA(FOR HYPERGLY) 136 mmol/L (136-145); CREATININE 1.02 mg/dL (0.70-1.30); GLUCOSE 175 mg/dL (65-99); POTASSIUM 3.9 mmol/L (3.5-5.1); SODIUM 134 mmol/L (136-145); TOTAL PROTEIN 7.3 g/dL (6.4-8.2); eGFR NON BLACK RACES > 60 (>60)
[2023-10-14] MEDS: PHARMACY COMMENT IV ONE (09:08)
--- NOTE | 2023-10-14 11:56 | NOTE.SOAP ---
Soap Note Note for Day of Date of Exam: 10/14/23 Subjective Data Subjective Data: POD # 1 after right below knee amputation Objective Data Pulse Rate: 53 Respiratory Rate: 21 Blood Pressure: 127/60 O2 Sat by Pulse Oximetry: 98 Objective Data: as above . Right leg dresings intact with no bleeding . Hgb=8.8 Assessment Assessment: s/p right below knee amputation with STSG Plan Plan: leave dressings intact , needs home health vs SNF
[2023-10-15 05:16] LABS: BASOPHILS # (AUTO) 0.1 X10^3/uL (0.0-0.1); EOSINOPHILS # (AUTO) 0.2 x10^3/uL (0.0-0.2); EOSINOPHILS % (AUTO) 1.7 % (0.9-2.9); HEMATOCRIT 25.5 % (42.0-54.0); HEMOGLOBIN 8.4 g/dL (13.5-18.0); LYMPHOCYTES # (AUTO) 1.3 X10^3/uL (1.3-2.9); LYMPHOCYTES % (AUTO) 9.8 % (21.0-51.0); MEAN CORPUSCULAR HEMOGLOBIN 27.1 pg (27.0-34.0); MEAN CORPUSCULAR HGB CONC 33.1 g/dL (33.0-35.0); MEAN CORPUSCULAR VOLUME 81.9 fL (80.0-100.0); MEAN PLATELET VOLUME 6.8 fL (7.4-11.0); MONOCYTES # (AUTO) 0.9 x10^3/uL (0.3-0.8); MONOCYTES % (AUTO) 6.5 % (0.0-13.0); NEUTROPHILS # (AUTO) 10.9 x10^3/uL (2.2-4.8); PLATELET COUNT 411 X10^3/uL (150.0-450.0); RED BLOOD COUNT 3.12 X10^6/uL (4.7-6.0); RED CELL DISTRIBUTION WIDTH 18.7 % (11.6-16.5); WHITE BLOOD COUNT 13.5 X10^3/uL (3.6-10.0)
[2023-10-15 05:31] LABS: ALANINE AMINOTRANSFERASE 17 Units/L (12-78); ALBUMIN 1.3 g/dL (3.4-5.0); ALKALINE PHOSPHATASE 97 Units/L (46-116); ASPARTATE AMINO TRANSFERASE 28 Units/L (15-37); BLOOD UREA NITROGEN 11 mg/dL (7-18); CALCIUM 7.9 mg/dL (8.5-10.1); CARBON DIOXIDE 20.2 mmol/L (21-32); CHLORIDE 102 mmol/L (98-107); COR CA(FOR HYPOALB) 10.1 mg/dL (8.5-10.1); COR NA(FOR HYPERGLY) 135 mmol/L (136-145); CREATININE 0.89 mg/dL (0.70-1.30); GLUCOSE 141 mg/dL (65-99); POTASSIUM 3.9 mmol/L (3.5-5.1); SODIUM 134 mmol/L (136-145); TOTAL PROTEIN 6.9 g/dL (6.4-8.2); eGFR NON BLACK RACES > 60 (>60)
[2023-10-15] MEDS: NYSTATIN POWDER TOP SCH (09:10)
--- NOTE | 2023-10-15 13:05 | DR.CONSULT ---
CONSULT Consultation for Day of: Date: 10/15/23 Chief Complaint Chief Complaint: afib Allergies Allergies Allergy/AdvReac Type Severity Reaction Status Date / Time Penicillins Allergy Mild RASH Verified 10/09/23 13:34 History of Present Illness History of Present Illness: 58 yo male- has dm/htn/hlp- no smoke- no heart disease history- never told afib but wore a 24 hour monitor years back- precentation ekg: afib, echo: afib, tele: afib from -14 october ( i reviewed)-he is unaware- in hosp for leg infection leading up to R BKA 2 days ago-on no rate control meds and hr 50-70s, tsh normal Past Medical History Past Medical History: Diabetes, Dyslipidemia, GERD and Hypertension Past Surgical History Surgical History: No History Family History Family Medical History: Diabetes Mellitus, [place] and Hypertension Social History Does patient currently use any type of tobacco product: Yes Type of Tobacco Use: Smokeless How many years tobacco product used: 45 Alcohol Use: None Drug Use: Prescription Drugs Medications Home Medications: Penicillins Allergy (Mild, Verified 10/09/23 13:34) RASH CONTINUE taking the following medications atorvastatin 10 mg tablet 10 mg PO QHS 10/09/23 [History] chlorthalidone 25 mg tablet 25 mg PO QDAY 10/09/23 [History] empagliflozin 25 mg tablet (Jardiance) 25 mg PO QDAY 10/09/23 [History] liraglutide 0.6 mg/0.1 mL (18 mg/3 mL) subcutaneous pen injector (Victoza 2-Chilo) 1.8 mg subcut DAILY 10/09/23 [History] lisinopril 40 mg tablet 40 mg PO QDAY 10/09/23 [History] metformin 750 mg tablet,extended release 24 hr 750 mg PO BID 10/09/23 [History] methocarbamol 750 mg tablet 750 mg PO 2-4XD PRN 10/09/23 [History] omeprazole 20 mg capsule,delayed release 20 mg PO BID 10/09/23 [History] Physical Exam Vital Signs: Vital Signs Temperature 98.9 F Pulse Rate 57 Pulse Rate 58 Pulse Rate 66 Pulse Rate 58 Pulse Rate 50 Pulse Rate 47 Pulse Rate 54 Pulse Rate 50 Respiratory Rate 20 Respiratory Rate 23 Respiratory Rate 23 Respiratory Rate 20 Respiratory Rate 10 Respiratory Rate 11 Respiratory Rate 22 Respiratory Rate 24 Respiratory Rate 18 Respiratory Rate 26 Blood Pressure 138/62 Blood Pressure 136/62 Blood Pressure 124/57 Blood Pressure 132/60 Blood Pressure 117/54 O2 Sat by Pulse Oximetry 98 O2 Sat by Pulse Oximetry 97 O2 Sat by Pulse Oximetry 94 O2 Sat by Pulse Oximetry 98 O2 Sat by Pulse Oximetry 98 O2 Sat by Pulse Oximetry 98 O2 Sat by Pulse Oximetry 98 O2 Sat by Pulse Oximetry 97 alert ox3 nad no bruits clear lungs irreg irreg slow, r bka bandaged-l leg: chronic venous stasis changes /palp pulse labs to note: wbc 13.5 hct 25.5 na 135 k 3.9 cr 0.89 albumin 1.3!! echo: very poor windows ef 50-55%, la volume big at 112 ml- subtle ant hypokinesis( some day needs ischeic eval due to risks/afib/echo) Plan (1) Diabetic foot infection: Status: Acute (2) Hypertension: Status: Acute (3) Hyperlipidemia: Status: Acute Plan: resume statin (4) Atrial fibrillation: Status: Acute Plan: avoid rate controlling meds as hr low- needs to be on DOAC once ok by vasc surgery ( eliquis 5 po bid)- chadsvasc is 3 defines 6% yearly risk of stroke (5) Heart disease with high risk for adverse event: Status: Acute
--- NOTE | 2023-10-15 17:03 | NOTE.SOAP ---
Soap Note Note for Day of Date of Exam: 10/15/23 Subjective Data Subjective Data: POD # 2 s/p right BKA and STSG to right calf . Doing well. stable Pain controlled Objective Data Pulse Rate: 48 Respiratory Rate: 23 Blood Pressure: 127/58 O2 Sat by Pulse Oximetry: 99 Objective Data: Right leg dressing intact and sry with good extension at the knee. Assessment Assessment: /P darrell BKA . Doing well Plan Plan: Waiting for SNF placement
[2023-10-15] MEDS: LIPITOR TAB 10 MG PO SCH (20:58)
[2023-10-16 05:09] LABS: BASOPHILS # (AUTO) 0.1 X10^3/uL (0.0-0.1); EOSINOPHILS # (AUTO) 0.2 x10^3/uL (0.0-0.2); EOSINOPHILS % (AUTO) 1.6 % (0.9-2.9); HEMATOCRIT 24.5 % (42.0-54.0); LYMPHOCYTES # (AUTO) 1.4 X10^3/uL (1.3-2.9); LYMPHOCYTES % (AUTO) 12.5 % (21.0-51.0); MEAN CORPUSCULAR HEMOGLOBIN 26.9 pg (27.0-34.0); MEAN CORPUSCULAR HGB CONC 32.5 g/dL (33.0-35.0); MEAN CORPUSCULAR VOLUME 82.7 fL (80.0-100.0); MEAN PLATELET VOLUME 6.9 fL (7.4-11.0); MONOCYTES # (AUTO) 0.7 x10^3/uL (0.3-0.8); MONOCYTES % (AUTO) 6.1 % (0.0-13.0); NEUTROPHILS # (AUTO) 8.9 x10^3/uL (2.2-4.8); NEUTROPHILS % (AUTO) 78.8 % (42.0-75.0); PLATELET COUNT 410 X10^3/uL (150.0-450.0); RED BLOOD COUNT 2.96 X10^6/uL (4.7-6.0); RED CELL DISTRIBUTION WIDTH 18.8 % (11.6-16.5); WHITE BLOOD COUNT 11.3 X10^3/uL (3.6-10.0)
[2023-10-16 05:18] LABS: ALANINE AMINOTRANSFERASE 18 Units/L (12-78); ALBUMIN 1.2 g/dL (3.4-5.0); ALKALINE PHOSPHATASE 88 Units/L (46-116); ASPARTATE AMINO TRANSFERASE 26 Units/L (15-37); BLOOD UREA NITROGEN 12 mg/dL (7-18); CARBON DIOXIDE 22.3 mmol/L (21-32); CHLORIDE 101 mmol/L (98-107); COR CA(FOR HYPOALB) 10.2 mg/dL (8.5-10.1); COR NA(FOR HYPERGLY) 135 mmol/L (136-145); CREATININE 0.85 mg/dL (0.70-1.30); GLUCOSE 124 mg/dL (65-99); POTASSIUM 3.6 mmol/L (3.5-5.1); SODIUM 134 mmol/L (136-145); TOTAL PROTEIN 6.8 g/dL (6.4-8.2); eGFR NON BLACK RACES > 60 (>60)
--- NOTE | 2023-10-16 09:16 | NOTE.SOAP ---
Soap Note Note for Day of Date of Exam: 10/16/23 Subjective Data Subjective Data: sleeping Objective Data Objective Data: hr 70s when up/40s when sleeping afib bp 110-140 labs: hct 24.5 wbc 11.2 albumin 1.2 Assessment Assessment: afib/dm/htn/hlp/BKA Plan Plan: vasc surgery said doac low risk for bleed - will start- needs f/u with me in 2-3 weeks for HR observation and some day : ischemic eval
[2023-10-16] MEDS: ELIQUIS PO SCH (10:31)
[2023-10-16 17:03] VITALS: BMI 41.4
[2023-10-16 20:33] LABS: CREATININE 0.9 mg/dL (0.70-1.30); VANCOMYCIN,TROUGH 15.9 ug/mL (15-20)
[2023-10-16] MEDS: PHARMACY COMMENT IV ONE (22:20)
--- NOTE | 2023-10-16 23:06 | NOTE.SOAP ---
Soap Note Note for Day of Date of Exam: 10/16/23 Subjective Data Subjective Data: POP# 3 d/p right BKA and STSG to right calf . Doing well. Objective Data Temperature: 99.1 F Pulse Rate: 52 Respiratory Rate: 18 Blood Pressure: 128/61 O2 Sat by Pulse Oximetry: 96 Objective Data: Right leg with wrap in place , Has a-fib . [id number] to start Eliquis Assessment Assessment: S/P BKA Plan Plan: OK with me to start Eliquis. Awaiting placement.
[2023-10-17 05:06] LABS: BASOPHILS # (AUTO) 0.1 X10^3/uL (0.0-0.1); BASOPHILS % (AUTO) 1.4 % (0.2-1.0); EOSINOPHILS # (AUTO) 0.2 x10^3/uL (0.0-0.2); EOSINOPHILS % (AUTO) 1.9 % (0.9-2.9); HEMATOCRIT 24.6 % (42.0-54.0); HEMOGLOBIN 8.1 g/dL (13.5-18.0); LYMPHOCYTES # (AUTO) 1.6 X10^3/uL (1.3-2.9); LYMPHOCYTES % (AUTO) 15.7 % (21.0-51.0); MEAN CORPUSCULAR HEMOGLOBIN 27.5 pg (27.0-34.0); MEAN CORPUSCULAR HGB CONC 33.1 g/dL (33.0-35.0); MEAN PLATELET VOLUME 6.5 fL (7.4-11.0); MONOCYTES # (AUTO) 0.6 x10^3/uL (0.3-0.8); MONOCYTES % (AUTO) 5.7 % (0.0-13.0); NEUTROPHILS # (AUTO) 7.7 x10^3/uL (2.2-4.8); NEUTROPHILS % (AUTO) 75.3 % (42.0-75.0); PLATELET COUNT 427 X10^3/uL (150.0-450.0); RED BLOOD COUNT 2.96 X10^6/uL (4.7-6.0); RED CELL DISTRIBUTION WIDTH 18.6 % (11.6-16.5); WHITE BLOOD COUNT 10.3 X10^3/uL (3.6-10.0)
[2023-10-17 05:30] LABS: ALANINE AMINOTRANSFERASE 22 Units/L (12-78); ALBUMIN 1.3 g/dL (3.4-5.0); ALKALINE PHOSPHATASE 89 Units/L (46-116); ASPARTATE AMINO TRANSFERASE 32 Units/L (15-37); BLOOD UREA NITROGEN 15 mg/dL (7-18); CALCIUM 7.9 mg/dL (8.5-10.1); CARBON DIOXIDE 20.9 mmol/L (21-32); CHLORIDE 102 mmol/L (98-107); COR CA(FOR HYPOALB) 10.1 mg/dL (8.5-10.1); CREATININE 0.92 mg/dL (0.70-1.30); GLUCOSE 110 mg/dL (65-99); POTASSIUM 3.6 mmol/L (3.5-5.1); SODIUM 134 mmol/L (136-145); TOTAL PROTEIN 7.2 g/dL (6.4-8.2); eGFR NON BLACK RACES > 60 (>60)
[2023-10-17] MEDS ORDERED: CONSULT PHARMACY - POTASSIUM & MAGNESIUM XX SCH ×3 (06:00→08:00)
[2023-10-17] MEDS: K-DUR TAB 20 MEQ PO SCH (08:57)
[2023-10-17] MEDS: MAG-OX TAB PO SCH (08:57)
[2023-10-17] MEDS: MAGNESIUM SULFATE 50% INJ VIAL 5 G in NS 500 ML IV 500 ML IV ONE (10:16)
--- NOTE | 2023-10-17 15:19 | PCM.PROG ---
Progress Note Progress Note for Day of Date of Exam: 10/17/23 Subjective Subjective: Patient is a 58-year-old male status post right BKA and STSG to right calf. He reports doing well. No concerns. No acute events overnight. Labs: WBC 10.3, hemoglobin 8.1, platelets 427, sodium 134, potassium 3.6, creatinine 0.92, glucose 110. Per surgery okay to restart Eliquis. Patient is also being followed by cardiology for bradycardia. He is awaiting placement. Otherwise continue with current treatment plan. Continue closely monitor and follow-up labs in the morning. Past Medical Family Social History Allergies: Allergies Penicillins Allergy (Mild, Verified 10/09/23 13:34) RASH Review of Systems ROS changes noted: see HPI Vital Signs and I&O's Vital Signs: Vital Signs Temperature 98.0 F Temperature 97.7 F Pulse Rate [Left Brachial] 50 Pulse Rate [Left Brachial] 51 Respiratory Rate 20 Respiratory Rate 20 Blood Pressure [Left Arm] 127/58 Blood Pressure [Left Arm] 121/58 O2 Sat by Pulse Oximetry 98 O2 Sat by Pulse Oximetry 99 Intake and Output: Intake & Output 10/14/23 10/15/23 10/16/23 10/17/23 23:59 23:59 23:59 23:59 Intake Total 4542 / 4542 5830 / 5830 4298 / 4298 1424 / 1424 Output Total 4100 / 4100 6800 / 6800 3500 / 3500 1200 / 1200 Balance 442 / 442 -970 / -970 798 / 798 224 / 224 Physical Exam Oriented: Normal, Time, Person and Place Eyes: Normal Ear: Normal Nose: Normal Throat: Normal Respiratory: Normal Cardiovascular: Bradycardia : Normal Auscultation: Bowel Sounds: Normal Tenderness: Normal Skin: Wound Musculoskeletal: Leg (s/p R BKA) Psychiatric: Normal Mood Description: Calm Affect: Normal Speech Pattern: Clear and Appropriate Laboratory and Diagnostics 10/17/23 04:40 10/17/23 04:40 Labs: 10/08/23 18:55 Blood Blood Culture Gram Stain - Final 10/08/23 18:55 Blood Blood Culture - Preliminary Clostridium Sporogenes 10/08/23 19:05 Blood Blood Culture - Final 10/09/23 09:30 Foot - Right Wound Gram Stain - Final 10/09/23 09:30 Foot - Right Wound Culture - Preliminary 10/08/23 20:43 Foot - Right Wound Gram Stain - Final 10/08/23 20:43 Foot - Right Wound Culture - Final Providencia Rettgeri Staphylococcus Aureus Laboratory WBC 10.3 X10^3/uL (3.6-10.0) H 10/17/23 04:40 RBC 2.96 X10^6/uL (4.7-6.0) L 10/17/23 04:40 Hgb 8.1 g/dL (13.5-18.0) L 10/17/23 04:40 Hct 24.6 % (42.0-54.0) L 10/17/23 04:40 MCV 83.0 fL (80.0-100.0) 10/17/23 04:40 MCH 27.5 pg (27.0-34.0) 10/17/23 04:40 MCHC 33.1 g/dL (33.0-35.0) 10/17/23 04:40 RDW 18.6 % (11.6-16.5) H 10/17/23 04:40 Plt Count 427 X10^3/uL (150.0-450.0) 10/17/23 04:40 Plt Count Comment Adequate (ADEQUATE) 10/12/23 04:00 MPV 6.5 fL (7.4-11.0) L 10/17/23 04:40 Neut % (Auto) 75.3 % (42.0-75.0) H 10/17/23 04:40 Lymph % (Auto) 15.7 % (21.0-51.0) L 10/17/23 04:40 Collier % (Auto) 5.7 % (0.0-13.0) 10/17/23 04:40 Eos % (Auto) 1.9 % (0.9-2.9) 10/17/23 04:40 Baso % (Auto) 1.4 % (0.2-1.0) H 10/17/23 04:40 Neut # (Auto) 7.7 x10^3/uL (2.2-4.8) H 10/17/23 04:40 Lymph # (Auto) 1.6 X10^3/uL (1.3-2.9) 10/17/23 04:40 Collier # (Auto) 0.6 x10^3/uL (0.3-0.8) 10/17/23 04:40 Eos # (Auto) 0.2 x10^3/uL (0.0-0.2) 10/17/23 04:40 Baso # (Auto) 0.1 X10^3/uL (0.0-0.1) 10/17/23 04:40 Absolute Nucleated RBC 0.1 /100WBC 10/17/23 04:40 Total Counted 100 10/12/23 04:00 Neutrophils % (Manual) 87 % (39-76) H 10/12/23 04:00 Lymphocytes % (Manual) 8 % (13-43) L 10/12/23 04:00 Monocytes % (Manual) 2 % (4-9) L 10/12/23 04:00 Eosinophils % (Manual) 3 % (0-6) 10/12/23 04:00 Plt Morphology Comment Normal (NORMAL) 10/12/23 04:00 RBC Morphology Abnormal (NORMAL) 10/12/23 04:00 Hypochromasia Slight A 10/12/23 04:00 Anisocytosis Slight A 10/12/23 04:00 Sodium 134 mmol/L (136-145) L 10/17/23 04:40 Corrected Sodium TNP 10/17/23 04:40 Potassium 3.6 mmol/L (3.5-5.1) 10/17/23 04:40 Chloride 102 mmol/L (98-107) 10/17/23 04:40 Carbon Dioxide 20.9 mmol/L (21-32) L 10/17/23 04:40 BUN 15 mg/dL (7-18) 10/17/23 04:40 Creatinine 0.92 mg/dL (0.70-1.30) 10/17/23 04:40 Est GFR (MDRD) Af Amer > 60 (>60) 10/17/23 04:40 Est GFR (MDRD) Non-Af > 60 (>60) 10/17/23 04:40 Glucose 110 mg/dL (65-99) H 10/17/23 04:40 POC Glucose (mg/dL) 105 mg/dL (65-99) H 10/17/23 10:56 Hemoglobin A1c 8.9 % 10/08/23 18:55 Calcium 7.9 mg/dL (8.5-10.1) L 10/17/23 04:40 Corrected Calcium 10.1 mg/dL (8.5-10.1) 10/17/23 04:40 Magnesium 1.4 mg/dL (2.0-2.9) L 10/17/23 04:40 Total Bilirubin 0.50 mg/dL (0.2-1.0) 10/17/23 04:40 AST 32 Units/L (15-37) 10/17/23 04:40 ALT 22 Units/L (12-78) 10/17/23 04:40 Alkaline Phosphatase 89 Units/L (46-116) 10/17/23 04:40 Total Protein 7.2 g/dL (6.4-8.2) 10/17/23 04:40 Albumin 1.3 g/dL (3.4-5.0) L 10/17/23 04:40 Globulin 5.9 g/dL (2.5-4.5) H 10/17/23 04:40 Albumin/Globulin Ratio 0.2 Ratio (1.1-2.1) L 10/17/23 04:40 TSH 3rd Generation 2.558 uIU/mL (0.358-3.74) 10/14/23 04:00 Vancomycin Trough 15.9 ug/mL (15-20) 10/16/23 20:05 Random Vancomycin 18.9 ug/mL 10/14/23 08:20 Blood Type O POSITIVE 10/13/23 04:00 Antibody Screen Negative 10/13/23 04:00 Crossmatch See Detail 10/13/23 04:00 Plan (1) Diabetic foot infection: Status: Acute (2) Hypertension: Status: Acute (3) Hyperlipidemia: Status: Acute (4) Atrial fibrillation: Status: Acute (5) Heart disease with high risk for adverse event: Status: Acute
--- NOTE | 2023-10-17 16:18 | DR.OPNOTE ---
OP NOTE Pre-Op Diagnosis: Severe osteomylitis right foot, non healing wound to right calf Post-Op Diagnosis: same Procedure Date Date Of Procedure: 10/13/23 Procedure: PROCEDURE: Right below the amputation, split thickness skin graft to the right posterior calf NARRATIVE : The patient was taken to the operative suite and placed in the supine position. General anesthesia induced and the entire right leg in its entirety prepped and draped in sterile fashion. Time out for the procedure obtained. A planned dog legged incision was started 1 hands breathe below the tibial tuberosity transversely and then extending on the posterior aspect another hands breathe, incising the skin with a number 15 knife blade. The patient has significant venous congestion and had significant blood loss due to this. The muscle of the anterior tibial compartment divided and the anterior tibial artery and vein divided between clamps and tie with 2-0 sik suture ligatures Periosteal elevator used to elevate the periosteum of the tibia and the fibula. The tibia divided with a Gigli saw. The fibula divided with some difficulty with the bone cutter. Amputation knife used to finish the amputation and the tibial peroneal trunk clamped and tied with 2 -0 silk suture ligatures . The rest of the hemostasis controlled with electrocautery. The fascia of the two flaps approximated with interrupted 0 Vicryl sutures and the skin closed with skin [place]. At this point the wound on the posterior aspect of the calf was measured, measuring 12 by 10 cm. A planned split thickness skin graft of 13/thousandth of an inch was planned of the anterior thigh measuring 8 by 10 centimeters and harvested with the dermatome and then meshed the 1 and 1 half times its size and placed over the wound and secured to the wound with interrupted 3-0 Vicryl sutures. Telfa placed over the donor site. Vaseline gauze placed over the skin graft and dressing applied over both the skin graft and the right below knee amputation wound. Patient was extubated and taken to recovery room and then to the critical care unit in good condition. He had a low hemoglobin to begin with and was given 2 units of blood in the operative Suite. Type of Anesthesia: General Anesthetic w/ETT Findings: as above Type of Fluids Used:: Lactated Ringers EBL: 200cc Complications:: none Needle/Sponge Count:: correct Disposition/Condition: Pt. tolerated procedure without difficulty. Taken to CCU in stable condition.
[2023-10-18 05:58] LABS: BASOPHILS # (AUTO) 0.2 X10^3/uL (0.0-0.1); BASOPHILS % (AUTO) 2.2 % (0.2-1.0); EOSINOPHILS # (AUTO) 0.3 x10^3/uL (0.0-0.2); EOSINOPHILS % (AUTO) 3.2 % (0.9-2.9); HEMATOCRIT 24.4 % (42.0-54.0); HEMOGLOBIN 8.1 g/dL (13.5-18.0); LYMPHOCYTES # (AUTO) 1.7 X10^3/uL (1.3-2.9); LYMPHOCYTES % (AUTO) 19.7 % (21.0-51.0); MEAN CORPUSCULAR HEMOGLOBIN 27.6 pg (27.0-34.0); MEAN CORPUSCULAR HGB CONC 33.3 g/dL (33.0-35.0); MEAN CORPUSCULAR VOLUME 82.9 fL (80.0-100.0); MEAN PLATELET VOLUME 6.8 fL (7.4-11.0); MONOCYTES # (AUTO) 0.6 x10^3/uL (0.3-0.8); MONOCYTES % (AUTO) 6.5 % (0.0-13.0); NEUTROPHILS # (AUTO) 5.9 x10^3/uL (2.2-4.8); NEUTROPHILS % (AUTO) 68.4 % (42.0-75.0); PLATELET COUNT 416 X10^3/uL (150.0-450.0); RED BLOOD COUNT 2.94 X10^6/uL (4.7-6.0); RED CELL DISTRIBUTION WIDTH 19.3 % (11.6-16.5); WHITE BLOOD COUNT 8.6 X10^3/uL (3.6-10.0)
[2023-10-18 06:12] LABS: ALANINE AMINOTRANSFERASE 21 Units/L (12-78); ALBUMIN 1.3 g/dL (3.4-5.0); ALKALINE PHOSPHATASE 86 Units/L (46-116); ASPARTATE AMINO TRANSFERASE 29 Units/L (15-37); BLOOD UREA NITROGEN 17 mg/dL (7-18); CALCIUM 7.9 mg/dL (8.5-10.1); CHLORIDE 104 mmol/L (98-107); COR CA(FOR HYPOALB) 10.1 mg/dL (8.5-10.1); CREATININE 1.19 mg/dL (0.70-1.30); GLUCOSE 95 mg/dL (65-99); MAGNESIUM 1.8 mg/dL (2.0-2.9); POTASSIUM 3.7 mmol/L (3.5-5.1); SODIUM 136 mmol/L (136-145); TOTAL PROTEIN 7.1 g/dL (6.4-8.2); eGFR NON BLACK RACES > 60 (>60)
[2023-10-18] MEDS ORDERED: CONSULT PHARMACY - POTASSIUM & MAGNESIUM XX SCH (07:00)
[2023-10-18] MEDS: MAG-OX TAB PO SCH (09:40)
[2023-10-18] MEDS: K-DUR TAB 20 MEQ PO SCH (09:40)
--- NOTE | 2023-10-18 11:56 | PCM.PROG ---
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 He is resting in bed this morning. No acute events overnight. Labs: WBC 8.6, hemoglobin 8.1, platelets 416, sodium 136, potassium 3.7, creatinine 1.19, glucose 95. Patient is also being followed by cardiology for b radycardia. He is awaiting placement. Otherwise continue with current treatment plan. Continue closely monitor and follow-up labs in the morning. Past Medical Family Social History Allergies: Allergies Penicillins Allergy (Mild, Verified 10/09/23 13:34) RASH Review of Systems ROS changes noted: see HPI Vital Signs and I&O's Vital Signs: Vital Signs Temperature 97.7 F Temperature 98.5 F Pulse Rate [Left Brachial] 50 Pulse Rate [Left Brachial] 42 Respiratory Rate 20 Respiratory Rate 20 Blood Pressure [Left Arm] 121/57 Blood Pressure [Left Arm] 121/56 O2 Sat by Pulse Oximetry 96 O2 Sat by Pulse Oximetry 96 Intake and Output: Intake & Output 10/15/23 10/16/23 10/17/23 10/18/23 23:59 23:59 23:59 23:59 Intake Total 5830 / 5830 4298 / 4298 4668 / 4668 880 / 880 Output Total 6800 / 6800 3500 / 3500 3950 / 3950 1640 / 1640 Balance -970 / -970 798 / 798 718 / 718 -760 / -760 Physical Exam Oriented: Normal, Time, Person and Place Eyes: Normal Ear: Normal Nose: Normal Throat: Normal Respiratory: Normal Cardiovascular: Bradycardia : Normal Auscultation: Bowel Sounds: Normal Tenderness: Normal Skin: Wound Musculoskeletal: Leg (s/p R BKA) Psychiatric: Normal Mood Description: Calm Affect: Normal Speech Pattern: Clear and Appropriate Laboratory and Diagnostics 10/18/23 05:35 10/18/23 05:35 Labs: 10/08/23 18:55 Blood Blood Culture Gram Stain - Final 10/08/23 18:55 Blood Blood Culture - Preliminary Clostridium Sporogenes 10/08/23 19:05 Blood Blood Culture - Final 10/09/23 09:30 Foot - Right Wound Gram Stain - Final 10/09/23 09:30 Foot - Right Wound Culture - Preliminary 10/08/23 20:43 Foot - Right Wound Gram Stain - Final 10/08/23 20:43 Foot - Right Wound Culture - Final Providencia Rettgeri Staphylococcus Aureus Laboratory WBC 8.6 X10^3/uL (3.6-10.0) 10/18/23 05:35 RBC 2.94 X10^6/uL (4.7-6.0) L 10/18/23 05:35 Hgb 8.1 g/dL (13.5-18.0) L 10/18/23 05:35 Hct 24.4 % (42.0-54.0) L 10/18/23 05:35 MCV 82.9 fL (80.0-100.0) 10/18/23 05:35 MCH 27.6 pg (27.0-34.0) 10/18/23 05:35 MCHC 33.3 g/dL (33.0-35.0) 10/18/23 05:35 RDW 19.3 % (11.6-16.5) H 10/18/23 05:35 Plt Count 416 X10^3/uL (150.0-450.0) 10/18/23 05:35 Plt Count Comment Adequate (ADEQUATE) 10/12/23 04:00 MPV 6.8 fL (7.4-11.0) L 10/18/23 05:35 Neut % (Auto) 68.4 % (42.0-75.0) 10/18/23 05:35 Lymph % (Auto) 19.7 % (21.0-51.0) L 10/18/23 05:35 [place] % (Auto) 6.5 % (0.0-13.0) 10/18/23 05:35 Eos % (Auto) 3.2 % (0.9-2.9) H 10/18/23 05:35 Baso % (Auto) 2.2 % (0.2-1.0) H 10/18/23 05:35 Neut # (Auto) 5.9 x10^3/uL (2.2-4.8) H 10/18/23 05:35 Lymph # (Auto) 1.7 X10^3/uL (1.3-2.9) 10/18/23 05:35 [place] # (Auto) 0.6 x10^3/uL (0.3-0.8) 10/18/23 05:35 Eos # (Auto) 0.3 x10^3/uL (0.0-0.2) H 10/18/23 05:35 Baso # (Auto) 0.2 X10^3/uL (0.0-0.1) H 10/18/23 05:35 Absolute Nucleated RBC 0.1 /100WBC 10/18/23 05:35 Total Counted 100 10/12/23 04:00 Neutrophils % (Manual) 87 % (39-76) H 10/12/23 04:00 Lymphocytes % (Manual) 8 % (13-43) L 10/12/23 04:00 Monocytes % (Manual) 2 % (4-9) L 10/12/23 04:00 Eosinophils % (Manual) 3 % (0-6) 10/12/23 04:00 Plt Morphology Comment Normal (NORMAL) 10/12/23 04:00 RBC Morphology Abnormal (NORMAL) 10/12/23 04:00 Hypochromasia Slight A 10/12/23 04:00 Anisocytosis Slight A 10/12/23 04:00 Sodium 136 mmol/L (136-145) 10/18/23 05:35 Corrected Sodium TNP 10/18/23 05:35 Potassium 3.7 mmol/L (3.5-5.1) 10/18/23 05:35 Chloride 104 mmol/L (98-107) 10/18/23 05:35 Carbon Dioxide 23.0 mmol/L (21-32) 10/18/23 05:35 BUN 17 mg/dL (7-18) 10/18/23 05:35 Creatinine 1.19 mg/dL (0.70-1.30) 10/18/23 05:35 Est GFR (MDRD) Af Amer > 60 (>60) 10/18/23 05:35 Est GFR (MDRD) Non-Af > 60 (>60) 10/18/23 05:35 Glucose 95 mg/dL (65-99) 10/18/23 05:35 POC Glucose (mg/dL) 101 mg/dL (65-99) H 10/18/23 11:19 Hemoglobin A1c 8.9 % 10/08/23 18:55 Calcium 7.9 mg/dL (8.5-10.1) L 10/18/23 05:35 Corrected Calcium 10.1 mg/dL (8.5-10.1) 10/18/23 05:35 Magnesium 1.8 mg/dL (2.0-2.9) L 10/18/23 05:35 Total Bilirubin 0.40 mg/dL (0.2-1.0) 10/18/23 05:35 AST 29 Units/L (15-37) 10/18/23 05:35 ALT 21 Units/L (12-78) 10/18/23 05:35 Alkaline Phosphatase 86 Units/L (46-116) 10/18/23 05:35 Total Protein 7.1 g/dL (6.4-8.2) 10/18/23 05:35 Albumin 1.3 g/dL (3.4-5.0) L 10/18/23 05:35 Globulin 5.8 g/dL (2.5-4.5) H 10/18/23 05:35 Albumin/Globulin Ratio 0.2 Ratio (1.1-2.1) L 10/18/23 05:35 TSH 3rd Generation 2.558 uIU/mL (0.358-3.74) 10/14/23 04:00 Vancomycin Trough 15.9 ug/mL (15-20) 10/16/23 20:05 Random Vancomycin 18.9 ug/mL 10/14/23 08:20 Blood Type O POSITIVE 10/13/23 04:00 Antibody Screen Negative 10/13/23 04:00 Crossmatch See Detail 10/13/23 04:00 Plan (1) Diabetic foot infection: Status: Acute (2) Hypertension: Status: Acute (3) Hyperlipidemia: Status: Acute (4) Atrial fibrillation: Status: Acute (5) Heart disease with high risk for adverse event: Status: Acute
[2023-10-18] MEDS: NS 1,000 ML IV 1,000 ML IV SCH (13:39)
[2023-10-19 06:21] LABS: BASOPHILS # (AUTO) 0.2 X10^3/uL (0.0-0.1); BASOPHILS % (AUTO) 2.5 % (0.2-1.0); EOSINOPHILS # (AUTO) 0.3 x10^3/uL (0.0-0.2); EOSINOPHILS % (AUTO) 3.9 % (0.9-2.9); HEMATOCRIT 24.9 % (42.0-54.0); HEMOGLOBIN 8.4 g/dL (13.5-18.0); LYMPHOCYTES # (AUTO) 1.6 X10^3/uL (1.3-2.9); MEAN CORPUSCULAR HGB CONC 33.7 g/dL (33.0-35.0); MEAN CORPUSCULAR VOLUME 83.1 fL (80.0-100.0); MEAN PLATELET VOLUME 6.7 fL (7.4-11.0); MONOCYTES # (AUTO) 0.5 x10^3/uL (0.3-0.8); MONOCYTES % (AUTO) 6.4 % (0.0-13.0); NEUTROPHILS # (AUTO) 5.2 x10^3/uL (2.2-4.8); NEUTROPHILS % (AUTO) 67.2 % (42.0-75.0); PLATELET COUNT 405 X10^3/uL (150.0-450.0); RED CELL DISTRIBUTION WIDTH 18.7 % (11.6-16.5); WHITE BLOOD COUNT 7.8 X10^3/uL (3.6-10.0)
[2023-10-19 06:35] LABS: ALANINE AMINOTRANSFERASE 19 Units/L (12-78); ALBUMIN 1.4 g/dL (3.4-5.0); ALKALINE PHOSPHATASE 84 Units/L (46-116); ASPARTATE AMINO TRANSFERASE 23 Units/L (15-37); BLOOD UREA NITROGEN 17 mg/dL (7-18); CARBON DIOXIDE 23.5 mmol/L (21-32); CHLORIDE 104 mmol/L (98-107); COR CA(FOR HYPOALB) 10.1 mg/dL (8.5-10.1); GLUCOSE 100 mg/dL (65-99); POTASSIUM 3.7 mmol/L (3.5-5.1); SODIUM 136 mmol/L (136-145); TOTAL PROTEIN 7.1 g/dL (6.4-8.2); eGFR NON BLACK RACES > 60 (>60)
[2023-10-19] MEDS ORDERED: CONSULT PHARMACY - POTASSIUM & MAGNESIUM XX SCH (07:00)
[2023-10-19] MEDS: K-DUR TAB 20 MEQ PO SCH (09:42)
[2023-10-19] MEDS: MAGNESIUM SULFATE 1 GRAM/100 mL PREMIX 1 G/100 ML BAG IV SCH (09:43)
[2023-10-19] MEDS ORDERED: PHENERGAN TAB 25 MG PO PRN (16:19)
[2023-10-19 20:11] LABS: CREATININE 1.09 mg/dL (0.70-1.30); VANCOMYCIN,TROUGH 17.1 ug/mL (15-20)
[2023-10-19] MEDS: FLONASE NASAL SPRAY ENOSTRIL SCH (20:59)
--- NOTE | 2023-10-19 21:15 | NOTE.SOAP ---
Soap Note Note for Day of Date of Exam: 10/19/23 Subjective Data Subjective Data: s/p right BKA and STSG to right calf. Objective Data Temperature: 98.7 F Pulse Rate: 43 Respiratory Rate: 20 Blood Pressure: 134/62 O2 Sat by Pulse Oximetry: 98 Objective Data: dressing intact Assessment Assessment: as above Plan Plan: Will remove dressing tomorrow and inspect wound and skin graft and skin graft donor site .
[2023-10-20 06:21] LABS: BASOPHILS # (AUTO) 0.2 X10^3/uL (0.0-0.1); EOSINOPHILS # (AUTO) 0.3 x10^3/uL (0.0-0.2); EOSINOPHILS % (AUTO) 3.2 % (0.9-2.9); HEMATOCRIT 25.2 % (42.0-54.0); HEMOGLOBIN 8.4 g/dL (13.5-18.0); LYMPHOCYTES # (AUTO) 1.6 X10^3/uL (1.3-2.9); LYMPHOCYTES % (AUTO) 20.1 % (21.0-51.0); MEAN CORPUSCULAR HEMOGLOBIN 27.7 pg (27.0-34.0); MEAN CORPUSCULAR HGB CONC 33.2 g/dL (33.0-35.0); MEAN CORPUSCULAR VOLUME 83.5 fL (80.0-100.0); MEAN PLATELET VOLUME 6.7 fL (7.4-11.0); MONOCYTES # (AUTO) 0.5 x10^3/uL (0.3-0.8); MONOCYTES % (AUTO) 5.6 % (0.0-13.0); NEUTROPHILS # (AUTO) 5.4 x10^3/uL (2.2-4.8); NEUTROPHILS % (AUTO) 68.1 % (42.0-75.0); PLATELET COUNT 421 X10^3/uL (150.0-450.0); RED BLOOD COUNT 3.02 X10^6/uL (4.7-6.0)
[2023-10-20 06:34] LABS: ALANINE AMINOTRANSFERASE 16 Units/L (12-78); ALBUMIN 1.4 g/dL (3.4-5.0); ALKALINE PHOSPHATASE 83 Units/L (46-116); ASPARTATE AMINO TRANSFERASE 18 Units/L (15-37); BLOOD UREA NITROGEN 16 mg/dL (7-18); CALCIUM 7.8 mg/dL (8.5-10.1); CHLORIDE 104 mmol/L (98-107); COR CA(FOR HYPOALB) 9.9 mg/dL (8.5-10.1); CREATININE 1.13 mg/dL (0.70-1.30); GLUCOSE 109 mg/dL (65-99); MAGNESIUM 1.7 mg/dL (2.0-2.9); POTASSIUM 3.8 mmol/L (3.5-5.1); SODIUM 138 mmol/L (136-145); TOTAL PROTEIN 6.9 g/dL (6.4-8.2); eGFR NON BLACK RACES > 60 (>60)
[2023-10-20] MEDS ORDERED: CONSULT PHARMACY - POTASSIUM & MAGNESIUM XX SCH (07:00)
[2023-10-20] MEDS: K-DUR TAB 20 MEQ PO SCH (08:55)
[2023-10-20] MEDS: MAG-OX TAB PO SCH (08:56)
[2023-10-20] MEDS: MAGNESIUM SULFATE 1 GRAM/100 mL PREMIX 1 G/100 ML BAG IV SCH (10:01)
[2023-10-20] MEDS: NS 500 ML IV 500 ML with MAGNESIUM SULFATE 50% INJ VIAL 4 G IV ONE (10:24)
--- NOTE | 2023-10-20 15:58 | NOTE.SOAP ---
Soap Note Note for Day of Date of Exam: 10/20/23 Subjective Data Subjective Data: POD # 7 after rigth below knee amputation and split thickness skin graft to the posterior stump . Awaiting placement Objective Data Temperature: 98.4 F Pulse Rate: 48 Respiratory Rate: 20 Blood Pressure: 112/62 O2 Sat by Pulse Oximetry: 94 Objective Data: Dressing taken down. Donor site clean, right BK stump is healing well , no drainage, good extension of the right knee, 100% take od skin graft . Dressing re-applied Assessment Assessment: s/p right BKA and STSG to the right stump, good result Plan Plan: MAy aravind transferred to SNF when bed available
[2023-10-21 06:44] LABS: BASOPHILS # (AUTO) 0.2 X10^3/uL (0.0-0.1); BASOPHILS % (AUTO) 2.6 % (0.2-1.0); EOSINOPHILS # (AUTO) 0.3 x10^3/uL (0.0-0.2); EOSINOPHILS % (AUTO) 3.7 % (0.9-2.9); HEMATOCRIT 26.7 % (42.0-54.0); HEMOGLOBIN 8.9 g/dL (13.5-18.0); LYMPHOCYTES # (AUTO) 1.7 X10^3/uL (1.3-2.9); LYMPHOCYTES % (AUTO) 21.3 % (21.0-51.0); MEAN CORPUSCULAR HEMOGLOBIN 27.9 pg (27.0-34.0); MEAN CORPUSCULAR HGB CONC 33.5 g/dL (33.0-35.0); MEAN CORPUSCULAR VOLUME 83.2 fL (80.0-100.0); MEAN PLATELET VOLUME 6.6 fL (7.4-11.0); MONOCYTES # (AUTO) 0.5 x10^3/uL (0.3-0.8); MONOCYTES % (AUTO) 5.7 % (0.0-13.0); NEUTROPHILS # (AUTO) 5.5 x10^3/uL (2.2-4.8); NEUTROPHILS % (AUTO) 66.7 % (42.0-75.0); PLATELET COUNT 448 X10^3/uL (150.0-450.0); RED BLOOD COUNT 3.21 X10^6/uL (4.7-6.0); RED CELL DISTRIBUTION WIDTH 19.5 % (11.6-16.5); WHITE BLOOD COUNT 8.2 X10^3/uL (3.6-10.0)
[2023-10-21 07:02] LABS: ALANINE AMINOTRANSFERASE 14 Units/L (12-78); ALBUMIN 1.5 g/dL (3.4-5.0); ALKALINE PHOSPHATASE 86 Units/L (46-116); ASPARTATE AMINO TRANSFERASE 19 Units/L (15-37); BLOOD UREA NITROGEN 18 mg/dL (7-18); CARBON DIOXIDE 24.6 mmol/L (21-32); CHLORIDE 103 mmol/L (98-107); COR NA(FOR HYPERGLY) 137 mmol/L (136-145); CREATININE 1.07 mg/dL (0.70-1.30); GLUCOSE 123 mg/dL (65-99); MAGNESIUM 1.8 mg/dL (2.0-2.9); SODIUM 136 mmol/L (136-145); TOTAL PROTEIN 7.2 g/dL (6.4-8.2); eGFR NON BLACK RACES > 60 (>60)
[2023-10-21] MEDS ORDERED: CONSULT PHARMACY - POTASSIUM & MAGNESIUM XX SCH (08:00)
[2023-10-21] MEDS: MAGNESIUM SULFATE 1 GRAM/100 mL PREMIX 1 G/100 ML BAG IV SCH (11:52)
[2023-10-21] MEDS: MAG-OX TAB PO SCH (11:53)
[2023-10-21] MEDS ORDERED: MILK OF MAGNESIA PO PRN (12:06)
[2023-10-22 06:32] LABS: BASOPHILS # (AUTO) 0.2 X10^3/uL (0.0-0.1); BASOPHILS % (AUTO) 2.5 % (0.2-1.0); EOSINOPHILS # (AUTO) 0.4 x10^3/uL (0.0-0.2); EOSINOPHILS % (AUTO) 4.3 % (0.9-2.9); HEMATOCRIT 28.4 % (42.0-54.0); HEMOGLOBIN 9.2 g/dL (13.5-18.0); LYMPHOCYTES # (AUTO) 1.7 X10^3/uL (1.3-2.9); LYMPHOCYTES % (AUTO) 20.9 % (21.0-51.0); MEAN CORPUSCULAR HEMOGLOBIN 27.4 pg (27.0-34.0); MEAN CORPUSCULAR HGB CONC 32.4 g/dL (33.0-35.0); MEAN CORPUSCULAR VOLUME 84.4 fL (80.0-100.0); MEAN PLATELET VOLUME 6.8 fL (7.4-11.0); MONOCYTES # (AUTO) 0.6 x10^3/uL (0.3-0.8); MONOCYTES % (AUTO) 6.7 % (0.0-13.0); NEUTROPHILS # (AUTO) 5.4 x10^3/uL (2.2-4.8); NEUTROPHILS % (AUTO) 65.6 % (42.0-75.0); PLATELET COUNT 456 X10^3/uL (150.0-450.0); RED BLOOD COUNT 3.37 X10^6/uL (4.7-6.0); WHITE BLOOD COUNT 8.3 X10^3/uL (3.6-10.0)
[2023-10-22 06:49] LABS: ALANINE AMINOTRANSFERASE 13 Units/L (12-78); ALBUMIN 1.6 g/dL (3.4-5.0); ALKALINE PHOSPHATASE 92 Units/L (46-116); ASPARTATE AMINO TRANSFERASE 19 Units/L (15-37); BLOOD UREA NITROGEN 14 mg/dL (7-18); CALCIUM 8.2 mg/dL (8.5-10.1); CARBON DIOXIDE 27.6 mmol/L (21-32); CHLORIDE 103 mmol/L (98-107); COR CA(FOR HYPOALB) 10.1 mg/dL (8.5-10.1); COR NA(FOR HYPERGLY) 138 mmol/L (136-145); CREATININE 1.08 mg/dL (0.70-1.30); GLUCOSE 131 mg/dL (65-99); MAGNESIUM 1.9 mg/dL (2.0-2.9); POTASSIUM 3.9 mmol/L (3.5-5.1); SODIUM 137 mmol/L (136-145); TOTAL PROTEIN 7.3 g/dL (6.4-8.2); eGFR NON BLACK RACES > 60 (>60)
[2023-10-22] MEDS ORDERED: CONSULT PHARMACY - POTASSIUM & MAGNESIUM XX SCH (07:00)
[2023-10-22] MEDS ORDERED: MAG-OX TAB PO SCH (08:00)
[2023-10-22] MEDS: ACTOS PO SCH (11:30)
[2023-10-22] MEDS: LYRICA CAP 150 mg PO SCH (21:03)
[2023-10-23 03:38] LABS: BASOPHILS # (AUTO) 0.2 X10^3/uL (0.0-0.1); EOSINOPHILS # (AUTO) 0.4 x10^3/uL (0.0-0.2); HEMATOCRIT 32.8 % (42.0-54.0); HEMOGLOBIN 10.6 g/dL (13.5-18.0); LYMPHOCYTES # (AUTO) 2.1 X10^3/uL (1.3-2.9); MEAN CORPUSCULAR HEMOGLOBIN 27.3 pg (27.0-34.0); MEAN CORPUSCULAR HGB CONC 32.4 g/dL (33.0-35.0); NEUTROPHILS # (AUTO) 6.2 x10^3/uL (2.2-4.8)
[2023-10-23 03:46] LABS: ALANINE AMINOTRANSFERASE 15 Units/L (12-78); ALBUMIN 1.9 g/dL (3.4-5.0); ALKALINE PHOSPHATASE 105 Units/L (46-116); ASPARTATE AMINO TRANSFERASE 19 Units/L (15-37); BLOOD UREA NITROGEN 17 mg/dL (7-18); CALCIUM 8.7 mg/dL (8.5-10.1); CHLORIDE 100 mmol/L (98-107); COR CA(FOR HYPOALB) 10.4 mg/dL (8.5-10.1); COR NA(FOR HYPERGLY) 136 mmol/L (136-145); CREATININE 1.12 mg/dL (0.70-1.30); GLUCOSE 135 mg/dL (65-99); MAGNESIUM 1.6 mg/dL (2.0-2.9); POTASSIUM 4.2 mmol/L (3.5-5.1); SODIUM 135 mmol/L (136-145); TOTAL PROTEIN 8.5 g/dL (6.4-8.2); eGFR NON BLACK RACES > 60 (>60)
[2023-10-23 03:47] LABS: BASOPHILS % (AUTO) 2.1 % (0.2-1.0); EOSINOPHILS % (AUTO) 4.3 % (0.9-2.9); LYMPHOCYTES % (AUTO) 22.7 % (21.0-51.0); MEAN CORPUSCULAR VOLUME 84.1 fL (80.0-100.0); MONOCYTES # (AUTO) 0.4 x10^3/uL (0.3-0.8); MONOCYTES % (AUTO) 4.1 % (0.0-13.0); NEUTROPHILS % (AUTO) 66.8 % (42.0-75.0); PLATELET COUNT 447 X10^3/uL (150.0-450.0); RED CELL DISTRIBUTION WIDTH 20.6 % (11.6-16.5); WHITE BLOOD COUNT 9.2 X10^3/uL (3.6-10.0)
[2023-10-23 04:11] LABS: PLATELET MORPHOLOGY COMMENT NORMAL (NORMAL)
[2023-10-23 04:12] LABS: ANISOCYTOSIS 1+
[2023-10-24 04:43] LABS: BASOPHILS # (AUTO) 0.2 X10^3/uL (0.0-0.1); BASOPHILS % (AUTO) 2.3 % (0.2-1.0); EOSINOPHILS # (AUTO) 0.3 x10^3/uL (0.0-0.2); EOSINOPHILS % (AUTO) 4.5 % (0.9-2.9); HEMATOCRIT 26.7 % (42.0-54.0); HEMOGLOBIN 8.8 g/dL (13.5-18.0); LYMPHOCYTES # (AUTO) 1.4 X10^3/uL (1.3-2.9); LYMPHOCYTES % (AUTO) 20.8 % (21.0-51.0); MEAN CORPUSCULAR HEMOGLOBIN 27.7 pg (27.0-34.0); MEAN CORPUSCULAR HGB CONC 32.9 g/dL (33.0-35.0); MEAN CORPUSCULAR VOLUME 84.4 fL (80.0-100.0); MONOCYTES # (AUTO) 0.5 x10^3/uL (0.3-0.8); MONOCYTES % (AUTO) 7.8 % (0.0-13.0); NEUTROPHILS # (AUTO) 4.2 x10^3/uL (2.2-4.8); NEUTROPHILS % (AUTO) 64.6 % (42.0-75.0); PLATELET COUNT 388 X10^3/uL (150.0-450.0); RED BLOOD COUNT 3.16 X10^6/uL (4.7-6.0); RED CELL DISTRIBUTION WIDTH 20.4 % (11.6-16.5); WHITE BLOOD COUNT 6.5 X10^3/uL (3.6-10.0)
[2023-10-24 04:53] LABS: ALANINE AMINOTRANSFERASE 10 Units/L (12-78); ALBUMIN 1.6 g/dL (3.4-5.0); ALKALINE PHOSPHATASE 85 Units/L (46-116); ASPARTATE AMINO TRANSFERASE 14 Units/L (15-37); BLOOD UREA NITROGEN 20 mg/dL (7-18); CALCIUM 8.2 mg/dL (8.5-10.1); CARBON DIOXIDE 28.8 mmol/L (21-32); CHLORIDE 111 mmol/L (98-107); COR CA(FOR HYPOALB) 10.1 mg/dL (8.5-10.1); COR NA(FOR HYPERGLY) 147 mmol/L (136-145); CREATININE 1.11 mg/dL (0.70-1.30); GLUCOSE 120 mg/dL (65-99); MAGNESIUM 1.5 mg/dL (2.0-2.9); POTASSIUM 4.1 mmol/L (3.5-5.1); SODIUM 147 mmol/L (136-145); TOTAL PROTEIN 6.7 g/dL (6.4-8.2); eGFR NON BLACK RACES > 60 (>60)
[2023-10-24 05:20] LABS: ANISOCYTOSIS 1+; PLATELET MORPHOLOGY COMMENT NORMAL (NORMAL)
[2023-10-24] MEDS ORDERED: CONSULT PHARMACY - POTASSIUM & MAGNESIUM XX SCH (06:00)
[2023-10-24] MEDS: MAG-OX TAB PO SCH (08:44)
[2023-10-24] MEDS: NS 1/2 1,000 ML IV 1,000 ML IV SCH (12:10)
[2023-10-25] MEDS: NS 1/2 1,000 ML IV 1,000 ML IV ONE ×3 (02:34→23:21)
[2023-10-25] MEDS ORDERED: NS 1/2 1,000 ML IV 1,000 ML IV ONE (04:10)
[2023-10-25 05:01] LABS: BASOPHILS # (AUTO) 0.2 X10^3/uL (0.0-0.1); EOSINOPHILS # (AUTO) 0.3 x10^3/uL (0.0-0.2); EOSINOPHILS % (AUTO) 5.3 % (0.9-2.9); HEMATOCRIT 30.6 % (42.0-54.0); HEMOGLOBIN 9.9 g/dL (13.5-18.0); LYMPHOCYTES # (AUTO) 1.3 X10^3/uL (1.3-2.9); LYMPHOCYTES % (AUTO) 20.7 % (21.0-51.0); MEAN CORPUSCULAR HEMOGLOBIN 27.3 pg (27.0-34.0); MEAN CORPUSCULAR HGB CONC 32.2 g/dL (33.0-35.0); MEAN CORPUSCULAR VOLUME 84.9 fL (80.0-100.0); MEAN PLATELET VOLUME 7.1 fL (7.4-11.0); MONOCYTES # (AUTO) 0.4 x10^3/uL (0.3-0.8); MONOCYTES % (AUTO) 6.8 % (0.0-13.0); NEUTROPHILS # (AUTO) 4.2 x10^3/uL (2.2-4.8); NEUTROPHILS % (AUTO) 64.2 % (42.0-75.0); PLATELET COUNT 395 X10^3/uL (150.0-450.0); RED BLOOD COUNT 3.61 X10^6/uL (4.7-6.0); RED CELL DISTRIBUTION WIDTH 20.9 % (11.6-16.5); WHITE BLOOD COUNT 6.5 X10^3/uL (3.6-10.0)
[2023-10-25 05:13] LABS: ALANINE AMINOTRANSFERASE 10 Units/L (12-78); ALBUMIN 1.8 g/dL (3.4-5.0); ALKALINE PHOSPHATASE 95 Units/L (46-116); ASPARTATE AMINO TRANSFERASE 17 Units/L (15-37); BLOOD UREA NITROGEN 20 mg/dL (7-18); CALCIUM 8.2 mg/dL (8.5-10.1); CARBON DIOXIDE 26.8 mmol/L (21-32); CHLORIDE 102 mmol/L (98-107); COR NA(FOR HYPERGLY) 139 mmol/L (136-145); CREATININE 1.16 mg/dL (0.70-1.30); GLUCOSE 147 mg/dL (65-99); MAGNESIUM 1.4 mg/dL (2.0-2.9); POTASSIUM 4.1 mmol/L (3.5-5.1); SODIUM 138 mmol/L (136-145); TOTAL PROTEIN 7.3 g/dL (6.4-8.2); eGFR NON BLACK RACES > 60 (>60)
[2023-10-25 05:32] LABS: ANISOCYTOSIS 1+; PLATELET MORPHOLOGY COMMENT NORMAL (NORMAL)
[2023-10-25] MEDS ORDERED: CONSULT PHARMACY - POTASSIUM & MAGNESIUM XX SCH (06:00)
[2023-10-25] MEDS: ULTRAM PO PRN (09:23)
[2023-10-25] MEDS: MAG-OX TAB PO SCH (09:23)
[2023-10-25] MEDS ORDERED: PERCOCET TAB 5/325 MG PO PRN (11:13)
--- NOTE | 2023-10-25 11:53 | NOTE.SOAP ---
Soap Note Note for Day of Date of Exam: 10/25/23 Subjective Data Subjective Data: Patient very stable after right SKA and STSG to right calf wound . last checked had 100 % take of skin graft . Objective Data Temperature: 97.8 F Pulse Rate: 51 Respiratory Rate: 20 Blood Pressure: 120/56 O2 Sat by Pulse Oximetry: 95 Objective Data: Dressing intact right leg with no drainage, donor site right thigh look good with dry Telfa over this wound. Assessment Assessment: as above Plan Plan: awaiting placement to SNF,. Will take down dressing on 10/27/2023
[2023-10-25] MEDS ORDERED: LYRICA CAP 150 mg PO SCH (21:00)
[2023-10-26] MEDS: NS 1/2 1,000 ML IV 1,000 ML IV ONE (05:50)
[2023-10-26 06:16] LABS: BASOPHILS # (AUTO) 0.2 X10^3/uL (0.0-0.1); BASOPHILS % (AUTO) 2.9 % (0.2-1.0); EOSINOPHILS # (AUTO) 0.4 x10^3/uL (0.0-0.2); EOSINOPHILS % (AUTO) 7.2 % (0.9-2.9); HEMATOCRIT 29.6 % (42.0-54.0); HEMOGLOBIN 9.5 g/dL (13.5-18.0); LYMPHOCYTES # (AUTO) 1.4 X10^3/uL (1.3-2.9); LYMPHOCYTES % (AUTO) 23.1 % (21.0-51.0); MEAN CORPUSCULAR HEMOGLOBIN 27.4 pg (27.0-34.0); MEAN CORPUSCULAR HGB CONC 32.2 g/dL (33.0-35.0); MEAN CORPUSCULAR VOLUME 85.2 fL (80.0-100.0); MEAN PLATELET VOLUME 7.3 fL (7.4-11.0); MONOCYTES # (AUTO) 0.4 x10^3/uL (0.3-0.8); MONOCYTES % (AUTO) 6.6 % (0.0-13.0); NEUTROPHILS # (AUTO) 3.5 x10^3/uL (2.2-4.8); NEUTROPHILS % (AUTO) 60.2 % (42.0-75.0); PLATELET COUNT 348 X10^3/uL (150.0-450.0); RED BLOOD COUNT 3.48 X10^6/uL (4.7-6.0); RED CELL DISTRIBUTION WIDTH 20.7 % (11.6-16.5); WHITE BLOOD COUNT 5.9 X10^3/uL (3.6-10.0)
[2023-10-26 06:33] LABS: ALANINE AMINOTRANSFERASE 12 Units/L (12-78); ALBUMIN 1.8 g/dL (3.4-5.0); ALKALINE PHOSPHATASE 91 Units/L (46-116); ASPARTATE AMINO TRANSFERASE 18 Units/L (15-37); BLOOD UREA NITROGEN 19 mg/dL (7-18); CALCIUM 8.5 mg/dL (8.5-10.1); CARBON DIOXIDE 28.3 mmol/L (21-32); CHLORIDE 101 mmol/L (98-107); COR CA(FOR HYPOALB) 10.3 mg/dL (8.5-10.1); COR NA(FOR HYPERGLY) 139 mmol/L (136-145); CREATININE 1.14 mg/dL (0.70-1.30); GLUCOSE 177 mg/dL (65-99); SODIUM 137 mmol/L (136-145); eGFR NON BLACK RACES > 60 (>60)
[2023-10-26 06:44] LABS: ANISOCYTOSIS 1+; PLATELET MORPHOLOGY COMMENT NORMAL (NORMAL)
[2023-10-26] MEDS: MAGNESIUM SULFATE IV ONE (11:40)
[2023-10-26] MEDS: NS IV ONE (11:40)
[2023-10-26] MEDS: COLACE CAP 100 MG PO PRN (16:27)
[2023-10-27 05:12] LABS: BASOPHILS # (AUTO) 0.2 X10^3/uL (0.0-0.1); EOSINOPHILS # (AUTO) 0.4 x10^3/uL (0.0-0.2); EOSINOPHILS % (AUTO) 7.1 % (0.9-2.9); HEMOGLOBIN 9.8 g/dL (13.5-18.0); LYMPHOCYTES # (AUTO) 1.6 X10^3/uL (1.3-2.9); LYMPHOCYTES % (AUTO) 30.7 % (21.0-51.0); MEAN CORPUSCULAR HEMOGLOBIN 27.6 pg (27.0-34.0); MEAN CORPUSCULAR HGB CONC 32.5 g/dL (33.0-35.0); MEAN PLATELET VOLUME 7.4 fL (7.4-11.0); MONOCYTES # (AUTO) 0.3 x10^3/uL (0.3-0.8); NEUTROPHILS # (AUTO) 2.8 x10^3/uL (2.2-4.8); NEUTROPHILS % (AUTO) 53.2 % (42.0-75.0); PLATELET COUNT 334 X10^3/uL (150.0-450.0); RED BLOOD COUNT 3.53 X10^6/uL (4.7-6.0); RED CELL DISTRIBUTION WIDTH 20.9 % (11.6-16.5); WHITE BLOOD COUNT 5.3 X10^3/uL (3.6-10.0)
[2023-10-27 05:38] LABS: ALANINE AMINOTRANSFERASE 12 Units/L (12-78); ALBUMIN 1.9 g/dL (3.4-5.0); ALKALINE PHOSPHATASE 83 Units/L (46-116); ASPARTATE AMINO TRANSFERASE 18 Units/L (15-37); BLOOD UREA NITROGEN 18 mg/dL (7-18); CALCIUM 8.5 mg/dL (8.5-10.1); CARBON DIOXIDE 30.7 mmol/L (21-32); CHLORIDE 102 mmol/L (98-107); COR CA(FOR HYPOALB) 10.2 mg/dL (8.5-10.1); CREATININE 0.94 mg/dL (0.70-1.30); GLUCOSE 90 mg/dL (65-99); MAGNESIUM 1.9 mg/dL (2.0-2.9); SODIUM 138 mmol/L (136-145); TOTAL PROTEIN 7.2 g/dL (6.4-8.2); eGFR NON BLACK RACES > 60 (>60)
[2023-10-27 05:39] LABS: ANISOCYTOSIS 1+; PLATELET MORPHOLOGY COMMENT NORMAL (NORMAL)
[2023-10-27] MEDS ORDERED: CONSULT PHARMACY - POTASSIUM & MAGNESIUM XX SCH (08:00)
[2023-10-27] MEDS: MAGNESIUM SULFATE 1 GRAM/100 mL PREMIX 1 G/100 ML BAG IV SCH (09:39)
--- NOTE | 2023-10-27 10:45 | NOTE.SOAP ---
Soap Note Note for Day of Date of Exam: 10/27/23 Subjective Data Subjective Data: Dressing changed, stump looks good, excellent appearance of skin graft to right calf, wound nearly healed Objective Data Temperature: 97.7 F Pulse Rate: 39 Respiratory Rate: 18 Blood Pressure: 103/57 O2 Sat by Pulse Oximetry: 98 Objective Data: right BK stump wound and STSG to right calf as above Assessment Assessment: s/p right BKA and STSG to the right calf with excellent result. Plan Plan: await placement, will leave joby for now .
[2023-10-27] MEDS: ULTRAM PO PRN (15:38)
[2023-10-28 06:37] LABS: BASOPHILS % (AUTO) 0.6 % (0.2-1.0); EOSINOPHILS # (AUTO) 0.4 x10^3/uL (0.0-0.2); EOSINOPHILS % (AUTO) 6.3 % (0.9-2.9); HEMATOCRIT 27.3 % (42.0-54.0); HEMOGLOBIN 8.8 g/dL (13.5-18.0); LYMPHOCYTES # (AUTO) 1.7 X10^3/uL (1.3-2.9); LYMPHOCYTES % (AUTO) 23.5 % (21.0-51.0); MEAN CORPUSCULAR HEMOGLOBIN 27.6 pg (27.0-34.0); MEAN CORPUSCULAR HGB CONC 32.1 g/dL (33.0-35.0); MEAN CORPUSCULAR VOLUME 85.9 fL (80.0-100.0); MEAN PLATELET VOLUME 7.5 fL (7.4-11.0); MONOCYTES # (AUTO) 0.5 x10^3/uL (0.3-0.8); MONOCYTES % (AUTO) 6.9 % (0.0-13.0); NEUTROPHILS # (AUTO) 4.4 x10^3/uL (2.2-4.8); NEUTROPHILS % (AUTO) 62.7 % (42.0-75.0); PLATELET COUNT 344 X10^3/uL (150.0-450.0); RED BLOOD COUNT 3.18 X10^6/uL (4.7-6.0); RED CELL DISTRIBUTION WIDTH 20.7 % (11.6-16.5); WHITE BLOOD COUNT 7.1 X10^3/uL (3.6-10.0)
[2023-10-28 07:07] LABS: ALANINE AMINOTRANSFERASE 12 Units/L (12-78); ALBUMIN 1.8 g/dL (3.4-5.0); ALKALINE PHOSPHATASE 103 Units/L (46-116); ASPARTATE AMINO TRANSFERASE 20 Units/L (15-37); BLOOD UREA NITROGEN 23 mg/dL (7-18); CALCIUM 8.5 mg/dL (8.5-10.1); CARBON DIOXIDE 29.1 mmol/L (21-32); CHLORIDE 102 mmol/L (98-107); COR CA(FOR HYPOALB) 10.3 mg/dL (8.5-10.1); COR NA(FOR HYPERGLY) 139 mmol/L (136-145); CREATININE 1.17 mg/dL (0.70-1.30); GLUCOSE 133 mg/dL (65-99); MAGNESIUM 1.8 mg/dL (2.0-2.9); POTASSIUM 3.9 mmol/L (3.5-5.1); SODIUM 138 mmol/L (136-145); eGFR NON BLACK RACES > 60 (>60)
[2023-10-28 07:10] LABS: PLATELET MORPHOLOGY COMMENT NORMAL (NORMAL)
[2023-10-28 07:11] LABS: ANISOCYTOSIS 1+
[2023-10-28] MEDS: MAGNESIUM SULFATE 1 GRAM/100 mL PREMIX 1 G/100 ML BAG IV SCH (09:30)
[2023-10-28] MEDS: ZESTRIL TAB 20 MG PO SCH (09:30)
[2023-10-29 06:29] LABS: BASOPHILS % (AUTO) 0.2 % (0.2-1.0); EOSINOPHILS # (AUTO) 0.4 x10^3/uL (0.0-0.2); EOSINOPHILS % (AUTO) 6.1 % (0.9-2.9); HEMATOCRIT 30.4 % (42.0-54.0); HEMOGLOBIN 9.9 g/dL (13.5-18.0); LYMPHOCYTES # (AUTO) 1.4 X10^3/uL (1.3-2.9); LYMPHOCYTES % (AUTO) 20.7 % (21.0-51.0); MEAN CORPUSCULAR HEMOGLOBIN 27.7 pg (27.0-34.0); MEAN CORPUSCULAR HGB CONC 32.4 g/dL (33.0-35.0); MEAN CORPUSCULAR VOLUME 85.5 fL (80.0-100.0); MEAN PLATELET VOLUME 7.6 fL (7.4-11.0); MONOCYTES # (AUTO) 0.4 x10^3/uL (0.3-0.8); MONOCYTES % (AUTO) 6.4 % (0.0-13.0); NEUTROPHILS # (AUTO) 4.4 x10^3/uL (2.2-4.8); NEUTROPHILS % (AUTO) 66.6 % (42.0-75.0); PLATELET COUNT 330 X10^3/uL (150.0-450.0); RED BLOOD COUNT 3.56 X10^6/uL (4.7-6.0); RED CELL DISTRIBUTION WIDTH 20.9 % (11.6-16.5); WHITE BLOOD COUNT 6.6 X10^3/uL (3.6-10.0)
[2023-10-29 06:47] LABS: ALANINE AMINOTRANSFERASE 9 Units/L (12-78); ALBUMIN 1.9 g/dL (3.4-5.0); ALKALINE PHOSPHATASE 108 Units/L (46-116); ASPARTATE AMINO TRANSFERASE 16 Units/L (15-37); BLOOD UREA NITROGEN 22 mg/dL (7-18); CALCIUM 8.4 mg/dL (8.5-10.1); CARBON DIOXIDE 29.6 mmol/L (21-32); CHLORIDE 102 mmol/L (98-107); COR CA(FOR HYPOALB) 10.1 mg/dL (8.5-10.1); COR NA(FOR HYPERGLY) 139 mmol/L (136-145); CREATININE 1.13 mg/dL (0.70-1.30); GLUCOSE 183 mg/dL (65-99); MAGNESIUM 1.7 mg/dL (2.0-2.9); POTASSIUM 3.8 mmol/L (3.5-5.1); SODIUM 137 mmol/L (136-145); eGFR NON BLACK RACES > 60 (>60)
[2023-10-29 06:50] LABS: ANISOCYTOSIS 1+; PLATELET MORPHOLOGY COMMENT NORMAL (NORMAL)
[2023-10-29] MEDS ORDERED: ZESTRIL TAB 20 MG ONE (08:18)
[2023-10-29] MEDS ORDERED: ZESTRIL TAB 40 MG PO SCH (09:00)
--- NOTE | 2023-10-31 12:19 | PCM.PROG ---
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 He is resting in bed this morning. No acute events overnight. Labs: WBC 6.6, hemoglobin 9.9, platelets 330. He is awaiting placement. Otherwise continue with current treatment plan. He is receiving his home medic ations. Continue closely monitor and follow-up labs in the morning. Past Medical Family Social History Allergies: Allergies Penicillins Allergy (Mild, Verified 10/09/23 13:34) RASH Review of Systems ROS changes noted: see HPI Vital Signs and I&O's Vital Signs: Vital Signs Temperature 98.6 F Pulse Rate [Left Brachial] 49 Respiratory Rate 17 Blood Pressure [Left Arm] 108/51 O2 Sat by Pulse Oximetry 93 Intake and Output: Intake & Output 10/28/23 10/29/23 10/30/23 10/31/23 23:59 23:59 23:59 23:59 Intake Total 1863 / 1863 1462 / 1462 1749 / 1749 1280 / 1280 Output Total 5350 / 5350 2800 / 2800 2260 / 2260 1210 / 1210 Balance -3487 / -3487 -1338 / -1338 -511 / -511 70 / 70 Physical Exam Oriented: Normal, Time, Person and Place Eyes: Normal Ear: Normal Nose: Normal Throat: Normal Respiratory: Normal Cardiovascular: Bradycardia : Normal Auscultation: Bowel Sounds: Normal Tenderness: Normal Skin: Wound Musculoskeletal: Leg (s/p R BKA) Psychiatric: Normal Mood Description: Calm Affect: Normal Speech Pattern: Clear and Appropriate Laboratory and Diagnostics 10/29/23 06:02 10/29/23 06:02 Labs: 10/09/23 09:30 Foot - Right Wound Gram Stain - Final 10/09/23 09:30 Foot - Right Wound Culture - Final 10/08/23 18:55 Blood Blood Culture Gram Stain - Final 10/08/23 18:55 Blood Blood Culture - Final Clostridium Sporogenes 10/08/23 19:05 Blood Blood Culture - Final 10/08/23 20:43 Foot - Right Wound Gram Stain - Final 10/08/23 20:43 Foot - Right Wound Culture - Final Providencia Rettgeri Staphylococcus Aureus Laboratory WBC 6.6 X10^3/uL (3.6-10.0) 10/29/23 06:02 RBC 3.56 X10^6/uL (4.7-6.0) L 10/29/23 06:02 Hgb 9.9 g/dL (13.5-18.0) L 10/29/23 06:02 Hct 30.4 % (42.0-54.0) L 10/29/23 06:02 MCV 85.5 fL (80.0-100.0) 10/29/23 06:02 MCH 27.7 pg (27.0-34.0) 10/29/23 06:02 MCHC 32.4 g/dL (33.0-35.0) L 10/29/23 06:02 RDW 20.9 % (11.6-16.5) H 10/29/23 06:02 Plt Count 330 X10^3/uL (150.0-450.0) 10/29/23 06:02 Plt Count Comment Adequate (ADEQUATE) 10/29/23 06:02 MPV 7.6 fL (7.4-11.0) 10/29/23 06:02 Neut % (Auto) 66.6 % (42.0-75.0) 10/29/23 06:02 Lymph % (Auto) 20.7 % (21.0-51.0) L 10/29/23 06:02 [place] % (Auto) 6.4 % (0.0-13.0) 10/29/23 06:02 Eos % (Auto) 6.1 % (0.9-2.9) H 10/29/23 06:02 Baso % (Auto) 0.2 % (0.2-1.0) 10/29/23 06:02 Neut # (Auto) 4.4 x10^3/uL (2.2-4.8) 10/29/23 06:02 Lymph # (Auto) 1.4 X10^3/uL (1.3-2.9) 10/29/23 06:02 [place] # (Auto) 0.4 x10^3/uL (0.3-0.8) 10/29/23 06:02 Eos # (Auto) 0.4 x10^3/uL (0.0-0.2) H 10/29/23 06:02 Baso # (Auto) 0.0 X10^3/uL (0.0-0.1) 10/29/23 06:02 Absolute Nucleated RBC 0.0 /100WBC 10/29/23 06:02 Total Counted 100 10/23/23 03:26 Neutrophils % (Manual) 72 % (39-76) 10/23/23 03:26 Lymphocytes % (Manual) 22 % (13-43) 10/23/23 03:26 Monocytes % (Manual) 4 % (4-9) 10/23/23 03:26 Eosinophils % (Manual) 2 % (0-6) 10/23/23 03:26 Plt Morphology Comment Normal (NORMAL) 10/29/23 06:02 RBC Morphology Abnormal (NORMAL) 10/29/23 06:02 Hypochromasia Slight A 10/12/23 04:00 Anisocytosis 1+ A 10/29/23 06:02 Sodium 137 mmol/L (136-145) 10/29/23 06:02 Corrected Sodium 139 mmol/L (136-145) 10/29/23 06:02 Potassium 3.8 mmol/L (3.5-5.1) 10/29/23 06:02 Chloride 102 mmol/L (98-107) 10/29/23 06:02 Carbon Dioxide 29.6 mmol/L (21-32) 10/29/23 06:02 BUN 22 mg/dL (7-18) H 10/29/23 06:02 Creatinine 1.13 mg/dL (0.70-1.30) 10/29/23 06:02 Est GFR (MDRD) Af Amer > 60 (>60) 10/29/23 06:02 Est GFR (MDRD) Non-Af > 60 (>60) 10/29/23 06:02 Glucose 183 mg/dL (65-99) H 10/29/23 06:02 POC Glucose (mg/dL) 100 mg/dL (65-99) H 10/31/23 11:21 Hemoglobin A1c 8.9 % 10/08/23 18:55 Calcium 8.4 mg/dL (8.5-10.1) L 10/29/23 06:02 Corrected Calcium 10.1 mg/dL (8.5-10.1) 10/29/23 06:02 Magnesium 1.7 mg/dL (2.0-2.9) L 10/29/23 06:02 Total Bilirubin 0.30 mg/dL (0.2-1.0) 10/29/23 06:02 AST 16 Units/L (15-37) 10/29/23 06:02 ALT 9 Units/L (12-78) L 10/29/23 06:02 Alkaline Phosphatase 108 Units/L (46-116) 10/29/23 06:02 Total Protein 7.0 g/dL (6.4-8.2) 10/29/23 06:02 Albumin 1.9 g/dL (3.4-5.0) L 10/29/23 06:02 Globulin 5.1 g/dL (2.5-4.5) H 10/29/23 06:02 Albumin/Globulin Ratio 0.4 Ratio (1.1-2.1) L 10/29/23 06:02 TSH 3rd Generation 2.558 uIU/mL (0.358-3.74) 10/14/23 04:00 Vancomycin Trough 17.1 ug/mL (15-20) 10/19/23 19:40 Random Vancomycin 17.0 ug/mL 10/21/23 08:50 Tissue Pathology See comment. 10/13/23 16:35 Blood Type O POSITIVE 10/13/23 04:00 Antibody Screen Negative 10/13/23 04:00 Crossmatch See Detail 10/13/23 04:00 Plan (1) Diabetic foot infection: Status: Acute (2) Hypertension: Status: Acute (3) Hyperlipidemia: Status: Acute (4) Atrial fibrillation: Status: Acute (5) Heart disease with high risk for adverse event: Status: Acute
[2023-11-01 05:34] LABS: BASOPHILS # (AUTO) 0.2 X10^3/uL (0.0-0.1); EOSINOPHILS # (AUTO) 0.3 x10^3/uL (0.0-0.2); EOSINOPHILS % (AUTO) 5.9 % (0.9-2.9); HEMOGLOBIN 9.6 g/dL (13.5-18.0); LYMPHOCYTES # (AUTO) 1.1 X10^3/uL (1.3-2.9); LYMPHOCYTES % (AUTO) 21.1 % (21.0-51.0); MEAN CORPUSCULAR VOLUME 84.9 fL (80.0-100.0); MEAN PLATELET VOLUME 7.6 fL (7.4-11.0); MONOCYTES # (AUTO) 0.3 x10^3/uL (0.3-0.8); MONOCYTES % (AUTO) 6.8 % (0.0-13.0); NEUTROPHILS # (AUTO) 3.2 x10^3/uL (2.2-4.8); NEUTROPHILS % (AUTO) 63.2 % (42.0-75.0); PLATELET COUNT 277 X10^3/uL (150.0-450.0); RED BLOOD COUNT 3.41 X10^6/uL (4.7-6.0); RED CELL DISTRIBUTION WIDTH 20.7 % (11.6-16.5); WHITE BLOOD COUNT 5.1 X10^3/uL (3.6-10.0)
[2023-11-01 05:42] LABS: ALANINE AMINOTRANSFERASE 9 Units/L (12-78); ALKALINE PHOSPHATASE 100 Units/L (46-116); ASPARTATE AMINO TRANSFERASE 13 Units/L (15-37); BLOOD UREA NITROGEN 18 mg/dL (7-18); CALCIUM 8.6 mg/dL (8.5-10.1); CHLORIDE 101 mmol/L (98-107); COR CA(FOR HYPOALB) 10.2 mg/dL (8.5-10.1); COR NA(FOR HYPERGLY) 140 mmol/L (136-145); CREATININE 1.02 mg/dL (0.70-1.30); GLUCOSE 164 mg/dL (65-99); MAGNESIUM 1.3 mg/dL (2.0-2.9); POTASSIUM 3.9 mmol/L (3.5-5.1); SODIUM 138 mmol/L (136-145); eGFR NON BLACK RACES > 60 (>60)
[2023-11-01 06:09] LABS: ANISOCYTOSIS 1+; PLATELET MORPHOLOGY COMMENT NORMAL (NORMAL)
[2023-11-01] MEDS ORDERED: CONSULT PHARMACY - POTASSIUM & MAGNESIUM XX SCH ×2 (07:00→09:00)
[2023-11-01] MEDS: K-DUR TAB 20 MEQ PO SCH (08:46)
[2023-11-01] MEDS: MAG-OX TAB PO SCH (08:47)
--- NOTE | 2023-11-01 12:01 | PCM.PROG ---
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 Patient is laying in bed on exam. No acute events overnight. Labs: WBC 5.1, hemoglobin 9.6, platelets 277, Na 138, K 3.9, Creatinine 1.02, Glucose 164. He is awaiting placement. Otherwise continue with current treatment plan. He is receiving his home medications. Continue closely monitor and follow-up labs in the morning. Past Medical Family Social History Allergies: Allergies Penicillins Allergy (Mild, Verified 10/09/23 13:34) RASH Review of Systems ROS changes noted: see HPI Vital Signs and I&O's Vital Signs: Vital Signs Temperature 98.6 F Temperature 98.2 F Pulse Rate [Left Brachial] 47 Pulse Rate [Left Brachial] 45 Respiratory Rate 18 Respiratory Rate 20 Blood Pressure [Left Arm] 115/55 Blood Pressure [Left Arm] 107/54 O2 Sat by Pulse Oximetry 99 O2 Sat by Pulse Oximetry 100 Intake and Output: Intake & Output 10/29/23 10/30/23 10/31/23 11/01/23 23:59 23:59 23:59 23:59 Intake Total 1462 / 1462 1749 / 1749 2832 / 2832 390 / 390 Output Total 2800 / 2800 2260 / 2260 3510 / 3510 1700 / 1700 Balance -1338 / -1338 -511 / -511 -678 / -678 -1310 / -1310 Physical Exam Oriented: Normal, Time, Person and Place Eyes: Normal Ear: Normal Nose: Normal Throat: Normal Respiratory: Normal Cardiovascular: Bradycardia : Normal Auscultation: Bowel Sounds: Normal Tenderness: Normal Skin: Wound Musculoskeletal: Leg (s/p R BKA) Psychiatric: Normal Mood Description: Calm Affect: Normal Speech Pattern: Clear and Appropriate Laboratory and Diagnostics 11/01/23 04:55 11/01/23 04:55 Labs: 10/09/23 09:30 Foot - Right Wound Gram Stain - Final 10/09/23 09:30 Foot - Right Wound Culture - Final 10/08/23 18:55 Blood Blood Culture Gram Stain - Final 10/08/23 18:55 Blood Blood Culture - Final Clostridium Sporogenes 10/08/23 19:05 Blood Blood Culture - Final 10/08/23 20:43 Foot - Right Wound Gram Stain - Final 10/08/23 20:43 Foot - Right Wound Culture - Final Providencia Rettgeri Staphylococcus Aureus Laboratory WBC 5.1 X10^3/uL (3.6-10.0) 11/01/23 04:55 RBC 3.41 X10^6/uL (4.7-6.0) L 11/01/23 04:55 Hgb 9.6 g/dL (13.5-18.0) L 11/01/23 04:55 Hct 29.0 % (42.0-54.0) L 11/01/23 04:55 MCV 84.9 fL (80.0-100.0) 11/01/23 04:55 MCH 28.0 pg (27.0-34.0) 11/01/23 04:55 MCHC 33.0 g/dL (33.0-35.0) 11/01/23 04:55 RDW 20.7 % (11.6-16.5) H 11/01/23 04:55 Plt Count 277 X10^3/uL (150.0-450.0) 11/01/23 04:55 Plt Count Comment Adequate (ADEQUATE) 11/01/23 04:55 MPV 7.6 fL (7.4-11.0) 11/01/23 04:55 Neut % (Auto) 63.2 % (42.0-75.0) 11/01/23 04:55 Lymph % (Auto) 21.1 % (21.0-51.0) 11/01/23 04:55 [place] % (Auto) 6.8 % (0.0-13.0) 11/01/23 04:55 Eos % (Auto) 5.9 % (0.9-2.9) H 11/01/23 04:55 Baso % (Auto) 3.0 % (0.2-1.0) H 11/01/23 04:55 Neut # (Auto) 3.2 x10^3/uL (2.2-4.8) 11/01/23 04:55 Lymph # (Auto) 1.1 X10^3/uL (1.3-2.9) L 11/01/23 04:55 [place] # (Auto) 0.3 x10^3/uL (0.3-0.8) 11/01/23 04:55 Eos # (Auto) 0.3 x10^3/uL (0.0-0.2) H 11/01/23 04:55 Baso # (Auto) 0.2 X10^3/uL (0.0-0.1) H 11/01/23 04:55 Absolute Nucleated RBC 0.3 /100WBC 11/01/23 04:55 Total Counted 100 10/23/23 03:26 Neutrophils % (Manual) 72 % (39-76) 10/23/23 03:26 Lymphocytes % (Manual) 22 % (13-43) 10/23/23 03:26 Monocytes % (Manual) 4 % (4-9) 10/23/23 03:26 Eosinophils % (Manual) 2 % (0-6) 10/23/23 03:26 Plt Morphology Comment Normal (NORMAL) 11/01/23 04:55 RBC Morphology Abnormal (NORMAL) 11/01/23 04:55 Hypochromasia Slight A 10/12/23 04:00 Anisocytosis 1+ A 11/01/23 04:55 Sodium 138 mmol/L (136-145) 11/01/23 04:55 Corrected Sodium 140 mmol/L (136-145) 11/01/23 04:55 Potassium 3.9 mmol/L (3.5-5.1) 11/01/23 04:55 Chloride 101 mmol/L (98-107) 11/01/23 04:55 Carbon Dioxide 30.0 mmol/L (21-32) 11/01/23 04:55 BUN 18 mg/dL (7-18) 11/01/23 04:55 Creatinine 1.02 mg/dL (0.70-1.30) 11/01/23 04:55 Est GFR (MDRD) Af Amer > 60 (>60) 11/01/23 04:55 Est GFR (MDRD) Non-Af > 60 (>60) 11/01/23 04:55 Glucose 164 mg/dL (65-99) H 11/01/23 04:55 POC Glucose (mg/dL) 93 mg/dL (65-99) 11/01/23 10:56 Hemoglobin A1c 8.9 % 10/08/23 18:55 Calcium 8.6 mg/dL (8.5-10.1) 11/01/23 04:55 Corrected Calcium 10.2 mg/dL (8.5-10.1) H 11/01/23 04:55 Magnesium 1.3 mg/dL (2.0-2.9) L 11/01/23 04:55 Total Bilirubin 0.30 mg/dL (0.2-1.0) 11/01/23 04:55 AST 13 Units/L (15-37) L 11/01/23 04:55 ALT 9 Units/L (12-78) L 11/01/23 04:55 Alkaline Phosphatase 100 Units/L (46-116) 11/01/23 04:55 Total Protein 7.0 g/dL (6.4-8.2) 11/01/23 04:55 Albumin 2.0 g/dL (3.4-5.0) L 11/01/23 04:55 Globulin 5.0 g/dL (2.5-4.5) H 11/01/23 04:55 Albumin/Globulin Ratio 0.4 Ratio (1.1-2.1) L 11/01/23 04:55 TSH 3rd Generation 2.558 uIU/mL (0.358-3.74) 10/14/23 04:00 Vancomycin Trough 17.1 ug/mL (15-20) 10/19/23 19:40 Random Vancomycin 17.0 ug/mL 10/21/23 08:50 Tissue Pathology See comment. 10/13/23 16:35 Blood Type O POSITIVE 10/13/23 04:00 Antibody Screen Negative 10/13/23 04:00 Crossmatch See Detail 10/13/23 04:00 Plan (1) Diabetic foot infection: Status: Acute (2) Hypertension: Status: Acute (3) Hyperlipidemia: Status: Acute (4) Atrial fibrillation: Status: Acute (5) Heart disease with high risk for adverse event: Status: Acute
[2023-11-01] MEDS: NS 250 ML IV 25 ML IV PRN (21:16)
[2023-11-02 05:21] LABS: BASOPHILS # (AUTO) 0.1 X10^3/uL (0.0-0.1); BASOPHILS % (AUTO) 0.9 % (0.2-1.0); EOSINOPHILS # (AUTO) 0.3 x10^3/uL (0.0-0.2); EOSINOPHILS % (AUTO) 5.3 % (0.9-2.9); HEMATOCRIT 33.8 % (42.0-54.0); HEMOGLOBIN 10.8 g/dL (13.5-18.0); LYMPHOCYTES # (AUTO) 1.2 X10^3/uL (1.3-2.9); LYMPHOCYTES % (AUTO) 21.3 % (21.0-51.0); MEAN CORPUSCULAR HEMOGLOBIN 27.4 pg (27.0-34.0); MEAN CORPUSCULAR HGB CONC 32.1 g/dL (33.0-35.0); MEAN CORPUSCULAR VOLUME 85.4 fL (80.0-100.0); MEAN PLATELET VOLUME 7.5 fL (7.4-11.0); MONOCYTES # (AUTO) 0.4 x10^3/uL (0.3-0.8); MONOCYTES % (AUTO) 7.5 % (0.0-13.0); NEUTROPHILS # (AUTO) 3.8 x10^3/uL (2.2-4.8); PLATELET COUNT 290 X10^3/uL (150.0-450.0); RED BLOOD COUNT 3.95 X10^6/uL (4.7-6.0); RED CELL DISTRIBUTION WIDTH 20.7 % (11.6-16.5); WHITE BLOOD COUNT 5.8 X10^3/uL (3.6-10.0)
[2023-11-02 05:29] LABS: ANISOCYTOSIS 1+; PLATELET MORPHOLOGY COMMENT NORMAL (NORMAL)
[2023-11-02 05:34] LABS: ALANINE AMINOTRANSFERASE 10 Units/L (12-78); ALBUMIN 2.2 g/dL (3.4-5.0); ALKALINE PHOSPHATASE 107 Units/L (46-116); ASPARTATE AMINO TRANSFERASE 14 Units/L (15-37); BLOOD UREA NITROGEN 21 mg/dL (7-18); CARBON DIOXIDE 30.7 mmol/L (21-32); CHLORIDE 101 mmol/L (98-107); COR CA(FOR HYPOALB) 10.4 mg/dL (8.5-10.1); COR NA(FOR HYPERGLY) 138 mmol/L (136-145); CREATININE 1.04 mg/dL (0.70-1.30); GLUCOSE 133 mg/dL (65-99); MAGNESIUM 1.5 mg/dL (2.0-2.9); POTASSIUM 4.3 mmol/L (3.5-5.1); SODIUM 137 mmol/L (136-145); TOTAL PROTEIN 7.8 g/dL (6.4-8.2); eGFR NON BLACK RACES > 60 (>60)
[2023-11-02] MEDS ORDERED: CONSULT PHARMACY - POTASSIUM & MAGNESIUM XX SCH (06:00)
[2023-11-02] MEDS: MAG-OX TAB PO SCH (09:00)
[2023-11-02 14:50] VITALS: BP 113/55; PULSE 44; RESP 18; TEMP 98.7; O2SAT 100
== END 2023-11-02 15:45 | DRG 854 ==
LOC: ICU 17:40 → MED/SURG 10-16 17:28
PROVIDERS: ADMIT Obstetrics & Gynecology Obstetrics; ATTEND Obstetrics & Gynecology Obstetrics
DX: Z89.411 Acquired absence of right great toe; B95.61 Methicillin susceptible Staphylococcus aureus infection as the cause of diseases classified elsewhere; A48.0 Gas gangrene; E78.5 Hyperlipidemia, unspecified; E11.65 Type 2 diabetes mellitus with hyperglycemia; M86.8X7 Other osteomyelitis, ankle and foot; K21.9 Gastro-esophageal reflux disease without esophagitis; E11.621 Type 2 diabetes mellitus with foot ulcer; I25.10 Atherosclerotic heart disease of native coronary artery without angina pectoris; L03.115 Cellulitis of right lower limb; B96.7 Clostridium perfringens [C. perfringens] as the cause of diseases classified elsewhere; Z01.810 Encounter for preprocedural cardiovascular examination; R26.89 Other abnormalities of gait and mobility; B96.89 Other specified bacterial agents as the cause of diseases classified elsewhere; I10 Essential (primary) hypertension; I48.91 Unspecified atrial fibrillation; R60.0 Localized edema; E83.42 Hypomagnesemia